=== PATIENT | female | born 1980 | race Caucasian/White ===

== ENCOUNTER 2017-03-07 17:17 | Emergency (ER) | payer OTHER ==
[~2017-03-07] VITALS: Ht 172.7 cm; Wt 151.6 kg
[~2017-03-07 17:17] MED LIST: GLC500 PO
[2017-03-07 17:23] VITALS: Ht 172.7 cm; Wt 151.6 kg
[2017-03-07] MEDS ORDERED: OMEP20CA9 PO (17:44)
[2017-03-07] MEDS ORDERED: ONDANSETRON INJ 2 MG/ML 2 ML VIAL IV STA (18:17)
[2017-03-07] MEDS ORDERED: KETOROLAC TROMETHAMINE 30 MG/ML VIAL IV STA (18:17)
[2017-03-07] MEDS ORDERED: SODIUM CHLORIDE 0.9% 1000ML 2,000 ML IV STA (18:17)
--- NOTE | 2017-03-07 19:20 | DIAGNOSTIC IMAGING REPORT ---
L-SPINE MIN 4 VIEWS ROUTINE CLINICAL HISTORY: Low back pain. COMPARISON: Lumbar spine radiographs September 02, 2014. FINDINGS: There is slight leftward curvature of the lumbar spine. Minimal anterolisthesis of L4 and L5 is unchanged. There is no fracture or suspicious lesion. Disc spaces are preserved. There is minimal endplate osteophytosis. Note is made of mild multilevel facet arthrosis. IMPRESSION: 1. No acute lumbar spine fracture or subluxation. 2. Minimal multilevel degenerative disc disease and facet arthrosis of the lumbar spine. Electronically signed by: Carlos Manuel Tran M.D. 03/07/2017 7:18 PM Dictated Date/Time: 03/07/2017 7:17 PM
[2017-03-07 19:50] LABS: BASO % 0.3 %; BASO ABS # 0.04 K/uL (0-0.2); COMPLETE YES; EOS % 1.6 %; HEMATOCRIT 38.9 % (37-47); IG% 0.3 %; LYMPH % 23.9 %; LYMPH ABS # 2.75 K/uL (1.2-3.4); MEAN CELL VOLUME 92.2 fL (80-100); MEAN CORPUSCULAR HEMOGLOBIN 31.3 pg (25-34); MEAN CORPUSCULAR HGB CONC 33.9 g/dl (32-36); MEAN PLATELET VOLUME 9.1 fL (7.4-10.4); MONO % 5.1 %; NEUT % 68.8 %; PLATELET COUNT 294 K/uL (130-400); RED BLOOD COUNT 4.22 M/uL (4.2-5.4); WHITE BLOOD COUNT 11.49 K/uL (4.8-10.8)
[2017-03-07 20:08] LABS: BUN/CREATININE RATIO 27.1 (10-20); CALCIUM 8.4 mg/dl (8.5-10.1); CREATININE 0.73 mg/dl (0.60-1.20); POTASSIUM 4.1 mmol/L (3.5-5.1)
[2017-03-07 20:16] LABS: URINE APPEARANCE CLOUDY (CLEAR); URINE BILIRUBIN NEG (NEG); URINE COLOR YELLOW; URINE EPITHELIAL CELL AUTO >30 /lpf (0-5); URINE NITRITE NEG (NEG); URINE PH 5.5 (4.5-7.5); UROBILINOGEN NEG (NEG)
[2017-03-07 20:18] LABS: PREG INTERNAL NEGATIVE QC NEG CLEAR BACKGROUND; PREG INTERNAL POSITIVE QC POS CONTROL LINE
[2017-03-07 20:19] LABS: MANUAL MICROSCOPIC REQUIRED? NO; REVIEW REQ? YES
--- NOTE | 2017-03-07 21:27 | DIAGNOSTIC IMAGING REPORT ---
CT OF THE ABDOMEN AND PELVIS WITHOUT CONTRAST, STONE PROTOCOL CLINICAL HISTORY: Left flank pain. COMPARISON STUDY: CT of the abdomen and pelvis May 10, 2009 and right upper quadrant ultrasound February 18, 2010. TECHNIQUE: Helical axial images of the abdomen and pelvis were obtained without IV or oral contrast according to renal stone protocol. FINDINGS: Lung bases are clear. No renal, ureteral or bladder calculi are present. There is no hydronephrosis or hydroureter. Evaluation of the remainder of the abdomen and pelvis is suboptimal on this unenhanced exam. Unenhanced images of the liver, spleen, adrenal glands and pancreas are normal. There is no biliary or pancreatic ductal dilatation. The gallbladder is not distended. Prominent para-aortic lymph node are unchanged since CT of May 10, 2009. There is no evidence for a bowel obstruction. The appendix is normal. A 3.1 cm water attenuation left adnexal lesion is noted. This likely reflects a cyst. Skeletal structures are unremarkable. There is no evidence for a bowel obstruction. IMPRESSION: 1. No urinary calculi or hydronephrosis. 2. No acute process within the abdomen or pelvis on unenhanced exam. 3. 3.1 cm water attenuation left adnexal lesion which likely reflects an ovarian cyst. Electronically signed by: Carlos Manuel Tran M.D. 03/07/2017 9:25 PM Dictated Date/Time: 03/07/2017 9:19 PM
[2017-03-07] MEDS ORDERED: HYDR-5688 PO (21:37)
--- NOTE | 2017-03-07 21:38 | EMERGENCY ROOM VISIT NOTE ---
History First contact with patient: 17:59 Chief Complaint: BACK PAIN Stated Complaint: LOWER BACK PAIN,ABD PAIN,NAUSEA, CHILLS History of Present Illness Patient is a 37-year-old white female who presents emergency department for evaluation of low back pain and urinary symptoms over the last 4 days. She has noted bilateral low back pain, left worse than right. It started about 4 days ago. It has progressively worsened. She states that it is worse with standing. She occasionally gets a sharp pain in her left flank that then radiates across her entire low back. She states she also notes some pain radiating into the tops of her thighs as well. Yesterday and today, she believes that she has only voided twice. She notes decreased urinary output yet notes urinary urgency. She denies hematuria or foul smelling urine. She has been nauseous, and used Zofran for nausea. She's had chills but has not documented a fever. She does have a family history of kidney stones, no personal history. She does have a history of low back issues for which she sees a chiropractor fairly regularly. She denies that this feels like her musculoskeletal pain. She denies any anterior abdominal pain. Bowel movements have been normal. No blood or melena. She denies any vaginal discharge. She does not get regular periods due to a history of an endometrial ablation. She denies any anterior chest pain or shortness of breath. No rib pain or pain with deep breathing or coughing. She denies any numbness, tingling or weakness or paresthesias into her legs. There is been no bowel or bladder incontinence. She rates her discomfort a 7/10 presently. Review of Systems Review of systems as per HPI. All other systems reviewed were negative. 10 systems reviewed. Past Medical/Surgical History Medical Problems: (1) Cervical strain (2) Cervical strain (3) Endometriosis Nos (4) Fall (5) Fall (6) Foot injury (7) GERD (gastroesophageal reflux disease) (8) Head injury (9) Headache (10) Hyperglycemia (11) Injury of left knee (12) Migraines (13) Morbid Obesity (14) Pain, dental (15) Polycystic Ovaries (16) Right knee pain Surgical Problems: (1) History of endometrial ablation (2) Previous section (3) S/P tonsillectomy Electronic medical records are reviewed and summarized as above/below. See Problem List. Family History Cancer Diabetes mellitus FHx: seizures Heart disease Hypertension Kidney disease Kidney stones Social History Smoking Status: Current Every Day Smoker Alcohol Use: none Marital Status: , in relationship Housing Status: lives with family, lives with significant other Occupation Status: employed Current/Historical Medications Scheduled Metformin HCl (Metformin HCl), 500 MG PO BID Omeprazole (Prilosec), 20 MG PO BID Scheduled PRN Hydrocodone/Acetaminophen 5MG/325MG (Odum 5MG/325MG), 1-2 TABLETS PO Q4 PRN for Pain Ibuprofen (Advil), 400-600 MG PO Q6H PRN for Pain Ondansetron (Ondansetron HCl), 8 MG PO Q8 PRN for Nausea Allergies Coded Allergies: No Known Allergies (Verified , 12/16/15) Physical Exam Vital Signs Date Time Temp Pulse Resp B/P Pulse Ox O2 Delivery O2 Flow Rate FiO2 03/07/17 21:47 36.6 71 20 118/75 99 03/07/17 21:24 71 20 118/75 99 Room Air 03/07/17 17:23 36.6 100 20 148/85 96 Room Air Physical Exam CONSTITUTIONAL: Patient is a morbidly obese 37-year-old white female who is awake and alert and laying on the gurney in no acute distress. EYES: Pupils equal, round, reactive to light and accommodation. EOMs intact without nystagmus. Sclera are anicteric. ENT: Tympanic membranes intact, with normal landmarks. External canals are clear. Oral and nasopharynx are clear. Mucous membranes are moist, no lesions , tongue and gums appear normal. CARDIOVASCULAR: Regular rate and rhythm, with normal S1 and S2, no murmur or gallop or rub is heard. No carotid bruits auscultated. No JVD. Peripheral pulses easy to palpable. RESPIRATORY: Breath sounds equal and clear to auscultation without wheezes, rales, or rhonchi heard. Full and equal chest expansion without accessory muscle use or retractions. GI: Bowel sounds are present. Abdomen is soft, nontender, nondistended. No organomegaly. No pulsatile masses. No guarding or rebound. MUSCULOSKELETAL: Full range of motion of extremities x 4 with good strength. No cyanosis, edema, joint tenderness or swelling. No deformity. Examination of the patient's spine does not note any swelling, erythema or signs of trauma. She has some reproducible tenderness over the spinous processes of the paraspinous muscles of the lumbar spine. No pain over the SI joints or the sciatic notch. Range of motion is full although she does have discomfort with position changes. Negative seated straight leg raise testing bilaterally. Lower extremity DTRs are equal and symmetric bilaterally with strength 5/5. INTEGUMENTARY: No lesions or rash, normal skin turgor. NEUROLOGICAL: Alert, oriented, and cooperative. Cranial nerves, sensation and strength grossly intact. Pupils round, equal, and react to light, EOMs are full. LYMPH: No lymphadenopathy. Medical Decision & Procedures ER Provider Diagnostic Interpretation: L-SPINE MIN 4 VIEWS ROUTINE CLINICAL HISTORY: Low back pain. COMPARISON: Lumbar spine radiographs September 02, 2014. FINDINGS: There is slight leftward curvature of the lumbar spine. Minimal anterolisthesis of L4 and L5 is unchanged. There is no fracture or suspicious lesion. Disc spaces are preserved. There is minimal endplate osteophytosis. Note is made of mild multilevel facet arthrosis. IMPRESSION: 1. No acute lumbar spine fracture or subluxation. 2. Minimal multilevel degenerative disc disease and facet arthrosis of the lumbar spine. CT OF THE ABDOMEN AND PELVIS WITHOUT CONTRAST, STONE PROTOCOL CLINICAL HISTORY: Left flank pain. COMPARISON STUDY: CT of the abdomen and pelvis May 10, 2009 and right upper quadrant ultrasound February 18, 2010. TECHNIQUE: Helical axial images of the abdomen and pelvis were obtained without IV or oral contrast according to renal stone protocol. FINDINGS: Lung bases are clear. No renal, ureteral or bladder calculi are present. There is no hydronephrosis or hydroureter. Evaluation of the remainder of the abdomen and pelvis is suboptimal on this unenhanced exam. Unenhanced images of the liver, spleen, adrenal glands and pancreas are normal. There is no biliary or pancreatic ductal dilatation. The gallbladder is not distended. Prominent para-aortic lymph node are unchanged since CT of May 10, 2009. There is no evidence for a bowel obstruction. The appendix is normal. A 3.1 cm water attenuation left adnexal lesion is noted. This likely reflects a cyst. Skeletal structures are unremarkable. There is no evidence for a bowel obstruction. IMPRESSION: 1. No urinary calculi or hydronephrosis. 2. No acute process within the abdomen or pelvis on unenhanced exam. 3. 3.1 cm water attenuation left adnexal lesion which likely reflects an ovarian cyst. Laboratory Results 03/07/17 19:43 Red Blood Count 4.22, Mean Corpuscular Volume 92.2, Mean Corpuscular Hemoglobin 31.3, Mean Corpuscular Hemoglobin Concent 33.9, Mean Platelet Volume 9.1, Neutrophils (%) (Auto) 68.8, Lymphocytes (%) (Auto) 23.9, Monocytes (%) (Auto) 5.1, Eosinophils (%) (Auto) 1.6, Basophils (%) (Auto) 0.3, Neutrophils # (Auto) 7.90, Lymphocytes # (Auto) 2.75, Monocytes # (Auto) 0.59, Eosinophils # (Auto) 0.18, Basophils # (Auto) 0.04 03/07/17 19:43 Test 03/07/17 19:43 03/07/17 20:00 White Blood Count 11.49 K/uL (4.8-10.8) Red Blood Count 4.22 M/uL (4.2-5.4) Hemoglobin 13.2 g/dL (12.0-16.0) Hematocrit 38.9 % (37-47) Mean Corpuscular Volume 92.2 fL (80-100) Mean Corpuscular Hemoglobin 31.3 pg (25-34) Mean Corpuscular Hemoglobin Concent 33.9 g/dl (32-36) Platelet Count 294 K/uL (130-400) Mean Platelet Volume 9.1 fL (7.4-10.4) Neutrophils (%) (Auto) 68.8 % Lymphocytes (%) (Auto) 23.9 % Monocytes (%) (Auto) 5.1 % Eosinophils (%) (Auto) 1.6 % Basophils (%) (Auto) 0.3 % Neutrophils # (Auto) 7.90 K/uL (1.4-6.5) Lymphocytes # (Auto) 2.75 K/uL (1.2-3.4) Monocytes # (Auto) 0.59 K/uL (0.11-0.59) Eosinophils # (Auto) 0.18 K/uL (0-0.5) Basophils # (Auto) 0.04 K/uL (0-0.2) RDW Standard Deviation 44.1 fL (36.4-46.3) RDW Coefficient of Variation 13.1 % (11.5-14.5) Immature Granulocyte % (Auto) 0.3 % Immature Granulocyte # (Auto) 0.03 K/uL (0.00-0.02) Anion Gap 4.0 mmol/L (3-11) Est Creatinine Clear Calc Drug Dose 161.7 ml/min Estimated GFR () 120.2 Estimated GFR (Non- 103.7 BUN/Creatinine Ratio 27.1 (10-20) Calcium Level 8.4 mg/dl (8.5-10.1) Human Chorionic Gonadotropin, Qual NEG (NEG) Urine Color YELLOW Urine Appearance CLOUDY (CLEAR) Urine pH 5.5 (4.5-7.5) Urine Specific Patriot 1.030 (1.000-1.030) Urine Protein NEG (NEG) Urine Glucose (UA) NEG (NEG) Urine Ketones NEG (NEG) Urine Occult Blood NEG (NEG) Urine Nitrite NEG (NEG) Urine Bilirubin NEG (NEG) Urine Urobilinogen NEG (NEG) Urine Leukocyte Esterase TRACE (NEG) Urine WBC (Auto) 10-30 /hpf (0-5) Urine RBC (Auto) 0-4 /hpf (0-4) Urine Hyaline Casts (Auto) /lpf (0-5) Urine Epithelial Cells (Auto) >30 /lpf (0-5) Urine Bacteria (Auto) 2+ (NEG) Urine Pathogenic Casts /lpf (0) Medications Administered Medications (Trade) Dose Ordered Sig/Missy Route Start Time Stop Time Status Last Admin Dose Admin Sodium Chloride (Nss 1000ml) 2,000 ml @ 999 mls/hr Q2H1M STAT IV 03/07/17 18:17 03/07/17 20:17 DC 03/07/17 19:25 999 MLS/HR Ketorolac Tromethamine (Toradol Inj) 30 mg NOW STAT IV 03/07/17 18:17 03/07/17 18:19 DC 03/07/17 19:24 30 MG Ondansetron HCl (Zofran Inj) 4 mg NOW STAT IV 03/07/17 18:17 03/07/17 18:19 DC 03/07/17 19:24 4 MG Acetaminophen/ Hydrocodone Bitart (Odum 5/325mg Home Pack) 1 homepack UD ONCE PO 03/07/17 21:45 03/07/17 21:46 DC 03/07/17 21:42 1 [facility] ED Course The patient was seen and evaluated as above. Her old records were reviewed. IV access was difficult, but was ultimately obtained. She was medicated with Toradol 30 mg and Zofran 4 mg IV. She was hydrated with normal saline solution. Laboratory studies including urinalysis, serum hCG, CBC and BMP were obtained. Lumbar spine x-rays were performed, which noted diffuse degenerative changes through the lumbar spine.laboratory studies demonstrated a minimally elevated white count at 11,400. Electrolytes are within normal limits. Serum hCG is negative. Urinalysis noted trace leuk esterase and 10-30 wbc's, with 2+ bacteria and greater than 30 epithelial cells. There are no other indicators for infection, however given her symptoms urine culture was ordered and is pending. Given her flank pain, I did elect to proceed with a CT scan. There was no evidence for urinary calculi or hydronephrosis. There was a 3 cm left adnexal region which likely reflects an ovarian cyst. No other acute process was noted. All laboratory diagnostic imaging studies were reviewed with the patient. She does have a moderate-sized left ovarian cyst, which could be attributing to some of her symptoms. She does not have overwhelmingly convincing evidence for UTI or pyelonephritis. Has no evidence for ureterolithiasis. I suspect she may also have some element of musculoskeletal low back pain as well. She does not have any physical exam findings to indicate acute cord compression or cauda equina syndrome. Patient was given a prescription for hydrocodone. She was advised to follow-up with her primary care provider and her bicycle repair technician for further care and management. She was discharged home in good condition with family driving. She rated her discomfort a 4/10 at discharge. Medical Decision See ED course. Impression Primary Impression: Left ovarian cyst Additional Impressions: Left flank pain Low back pain Departure Information Prescriptions Hydrocodone/Acetaminophen 5MG/325MG (Odum 5MG/325MG) Tab 1-2 TABLETS PO Q4 Y for Pain, #15 TAB For Initial Treatment Prov: Lilliana Caputo PA 03/07/17 Referrals Jessi Ramey M.D. (MEDICAL) (PCP) Patient Instructions My [facility] Additional Instructions Hydrocodone/Acetaminophen (Odum) 5/325 mg: Take 1-2 pills every four hours for breakthrough pain. Avoid alcohol, operating machinery or dangerous equipment, working on ladders or roofs, DRIVING, or situations where being under the influence may be dangerous. It is recommended to use an [id number] stool softener such as Colace, 100mg twice daily while taking this medication to avoid constipation. Ibuprofen(Motrin, Advil) may be used for fever or pain. Use 600mg every six hours as needed. Take with food. Avoid using more than 2400mg in a 24 hour period. Do not use 2400mg per day for more than three consecutive days without physician direction. Prolonged inappropriate use can lead to stomach upset or ulcers. This medication can be taken if you need to drive, work, or perform activities which may be dangerous when taking narcotic pain medication. (AND/OR) Acetaminophen(Tylenol) may be used for fever or pain. Use 1000mg every six hours as needed. Avoid using more than 3000mg in a 24 hour period. This medication can be taken if you need to drive, work, or perform activities which may be dangerous when taking narcotic pain medication. Rest and avoid heavy lifting until your symptoms resolve and then gradually return to full activity. A good rule of thumb is if it hurts your back to perform a certain activity, then it should be avoided until you are healthy again. A heating pad, warm compresses, or a hot shower may help with tight muscles and can be done several times a day as needed. Continue current medications. Return to the ER immediately for any numbness, tingling, severe pain, loss of control of your bowels or bladder, inability to walk, or as needed. Follow up with your primary care physician within 3-5 days for a recheck of your current condition. Follow-up with her bicycle repair technician for further care and evaluation of your ovarian cyst. Problem Qualifiers
[2017-03-07] MEDS ORDERED: NORCO 5/325MG HOME PACK PO ONE (21:45)
[2017-03-07 21:47] VITALS: BP 118/75; PULSE 71; TEMP 36.6; O2SAT 99
[2017-07-13] MEDS ORDERED: FLUO40CA8 PO (14:38)
[2017-10-13] MEDS ORDERED: DICY20TA10 PO (14:03)
[2017-10-13] MEDS ORDERED: CALC500C3 PO (14:38)
== END 2017-03-07 21:48 | disposition home or self-care (01) ==
LOC: C.EDB 17:18
DX: N83.201 Unspecified ovarian cyst, right side (principal); R19.8 Other specified symptoms and signs involving the digestive system and abdomen; R73.9 Hyperglycemia, unspecified; K21.9 Gastro-esophageal reflux disease without esophagitis; E66.01 Morbid (severe) obesity due to excess calories; F17.200 Nicotine dependence, unspecified, uncomplicated; Z83.3 Family history of diabetes mellitus; Z84.1 Family history of disorders of kidney and ureter; Z82.49 Family history of ischemic heart disease and other diseases of the circulatory system

== ENCOUNTER 2017-03-21 13:37 | Emergency (ER) | payer OTHER ==
[~2017-03-21] VITALS: Ht 172.7 cm; Wt 136.8 kg
[~2017-03-21 13:37] MED LIST changes: +HYDR-5688 PO; +OMEP20CA9 PO
[2017-03-21 13:50] VITALS: TEMP 36.6; Ht 172.7 cm; Wt 136.8 kg
[2017-03-21] MEDS ORDERED: SODIUM CHLORIDE 0.9% 1000ML 1,000 ML IV STA (14:07)
[2017-03-21] MEDS ORDERED: FAMOTIDINE 20MG/102 ML D5W IV STA (14:17)
[2017-03-21] MEDS ORDERED: SODIUM CHLORIDE 0.9% 1000ML 2,000 ML IV STA (14:17)
[2017-03-21] MEDS ORDERED: ONDANSETRON 8 MG/54 ML D5W IV ONE (14:30)
[2017-03-21] MEDS ORDERED: OPTIRAY 320 IV PRN (14:45)
[2017-03-21 14:52] LABS: BASO % 0.3 %; BASO ABS # 0.03 K/uL (0-0.2); COMPLETE YES; EOS % 1.8 %; HEMATOCRIT 42.2 % (37-47); IG% 0.2 %; LYMPH % 32.6 %; LYMPH ABS # 2.93 K/uL (1.2-3.4); MEAN CELL VOLUME 94.6 fL (80-100); MEAN CORPUSCULAR HEMOGLOBIN 32.3 pg (25-34); MEAN CORPUSCULAR HGB CONC 34.1 g/dl (32-36); MEAN PLATELET VOLUME 9.3 fL (7.4-10.4); MONO % 5.8 %; NEUT % 59.3 %; PLATELET COUNT 329 K/uL (130-400); RED BLOOD COUNT 4.46 M/uL (4.2-5.4); WHITE BLOOD COUNT 8.99 K/uL (4.8-10.8)
[2017-03-21 15:15] LABS: BLOOD UREA NITROGEN 15 mg/dl (7-18); BUN/CREATININE RATIO 19.1 (10-20); CALCIUM 9.2 mg/dl (8.5-10.1); CARBON DIOXIDE 30 mmol/L (21-32); CHLORIDE 106 mmol/L (98-107); CREATININE 0.77 mg/dl (0.60-1.20); GLUCOSE 88 mg/dl (70-99); MAGNESIUM 1.8 mg/dl (1.8-2.4); POTASSIUM 3.9 mmol/L (3.5-5.1); SODIUM 142 mmol/L (136-145)
[2017-03-21 15:27] LABS: ALKALINE PHOSPHATASE 69 U/L (45-117); ALT/SGPT 41 U/L (12-78); AST/SGOT 19 U/L (15-37)
--- NOTE | 2017-03-21 16:02 | DIAGNOSTIC IMAGING REPORT ---
ABDOMINAL ULTRASOUND, RIGHT UPPER QUADRANT HISTORY: upper mid pain, radiating to back. COMPARISON: None. FINDINGS: Pancreas: The pancreatic tail is obscured by overlying bowel gas. The remaining portions of the pancreas are within normal limits. Liver: The liver is echogenic consistent with fatty change. Gallbladder: Gallbladder is contracted resulting in suboptimal evaluation. No gallbladder wall thickening. No gallstones. CBD: 3 mm. Right kidney: No hydronephrosis. IMPRESSION: 1. Contracted gallbladder. No definite gallbladder wall thickening. No gallstones. 2. Hepatic steatosis. Electronically signed by: Haim Rubio M.D. 03/21/2017 4:00 PM Dictated Date/Time: 03/21/2017 3:59 PM
--- NOTE | 2017-03-21 17:31 | DIAGNOSTIC IMAGING REPORT ---
ABDOMEN AND PELVIS CT WITH IV AND ORAL CONTRAST CT DOSE: 1868.75 mGy.cm HISTORY: mid upper abd pain. TECHNIQUE: Multiaxial CT images of the abdomen and pelvis were performed following the use of intravenous and oral contrast. COMPARISON STUDY: Abdomen and pelvis CT 03/07/2017. FINDINGS: The lung bases are clear. The gallbladder is contracted. The liver, spleen, adrenal glands, and pancreas are unremarkable. Normal kidneys. No hydronephrosis. Subcentimeter retroperitoneal lymph nodes remain stable. The bladder is unremarkable. Small bilateral renal hypodense lesions. The largest on the right measures 2.2 cm. These likely represent cysts. The left ovarian hypodense lesions have decreased in size. Trace pelvic free fluid which is likely physiologic. No bowel wall thickening or obstruction. IMPRESSION: 1. No bowel wall thickening or obstruction. 2. No hydronephrosis. 3. The gallbladder is contracted. There is no pericholecystic inflammatory change. 4. Trace pelvic free fluid which is likely physiologic. Electronically signed by: Haim Rubio M.D. 03/21/2017 5:30 PM Dictated Date/Time: 03/21/2017 5:23 PM
[2017-03-21] MEDS ORDERED: DICY20TA35 PO (18:48)
[2017-03-21 18:55] VITALS: BP 142/69; PULSE 70; O2SAT 99
--- NOTE | 2017-03-21 23:55 | EMERGENCY ROOM VISIT NOTE ---
History Report prepared by Homer: Denia Downs Under the Supervision of: Dr. Silverio Scott M.D. First contact with patient: 14:06 Chief Complaint: ABDOMINAL PAIN Stated Complaint: VOMITING BLOOD, SEVERE STOMACH AND BACK PAINS Nursing Triage Summary: PT PRESENTS VERBALIZES SHE VOMITIED BLOOD AT 0800. C/O BILATERAL ABDOMINAL AND BILATERAL BACK PAIN 10/10. LAST BM TWO DAYS AGO. PT SEEN AT PCP FOR THIS TWO DAYS AGO AND RECEIVED ENEMA, SUPPOSITORY, AND MIRILAX BUT ABDOMINAL PAIN PERSISTS. History of Present Illness The patient is a 37 year old female who presents to the Emergency Room with complaints of worsening upper abdominal pain for the past week and a half. The patient was seen in the ED 2 weeks ago and diagnosed with a left ovarian cyst. Her CT scan was otherwise negative. She states that since that time she has been experiencing diffuse abdominal pain that she describes as "twisting" and "cramping." She also feels that her abdomen is bloated. The patient rates her pain as a 10/10 in severity and states that it radiates into her lower back. She has had intermittent nausea, and this morning at 0800 she had an episode of hematemesis. Her last bowel movement was 2 days ago. She was evaluated at her PCP's office for these symptoms. She had an enema, suppository, and MiraLAX, in the office and she had multiple watery bowel movements. The patient states that she initially had relief, but once she got home her symptoms returned and they have persisted. She called her PCP's office 2 days ago and they recommended that she continue the MiraLAX. Pt denies LOC, headache, fevers, chills, diaphoresis, visual changes, neck pain, chest pain, breathing difficulties, melena, hematochezia, urinary symptoms, numbness, weakness, lymphadenopathy, rash, or other complaints. Source of History: patient Onset: 1.5 weeks ago Position: abdomen (upper) Symptom Intensity: 10/10 Quality: cramping, other (twisting) Timing: worsening Modifying Factors (Relieving): other (enema, suppository, MiraLAX) Associated Symptoms: + back pain, + nausea, + vomiting (with hematemesis) Review of Systems See HPI for pertinent positives and negatives. A total of ten systems were reviewed and were otherwise negative. Past Medical & Surgical Medical Problems: (1) Cervical strain (2) Cervical strain (3) Endometriosis Nos (4) Fall (5) Fall (6) Foot injury (7) GERD (gastroesophageal reflux disease) (8) Head injury (9) Headache (10) Hyperglycemia (11) Injury of left knee (12) Migraines (13) Morbid Obesity (14) Pain, dental (15) Polycystic Ovaries (16) Right knee pain Surgical Problems: (1) History of endometrial ablation (2) Previous section (3) S/P tonsillectomy Family History Cancer Diabetes mellitus FHx: seizures Heart disease Hypertension Kidney disease Kidney stones Social History Smoking Status: Current Every Day Smoker Alcohol Use: none Marital Status: , in relationship Housing Status: lives with family, lives with significant other Occupation Status: employed Current/Historical Medications Scheduled Metformin HCl (Metformin HCl), 500 MG PO BID Omeprazole (Prilosec), 20 MG PO BID Scheduled PRN Dicyclomine Hcl (Dicyclomine Hcl), 1 TAB PO QID PRN for Pain Dicyclomine Hcl (Bentyl), 20 MG PO QID PRN for Pain Hydrocodone/Acetaminophen 5MG/325MG ([place]man 5MG/325MG), 1-2 TABLETS PO Q4 PRN for Pain Ibuprofen (Advil), 400-600 MG PO Q6H PRN for Pain Ondansetron (Ondansetron HCl), 8 MG PO Q8 PRN for Nausea Allergies Coded Allergies: No Known Allergies (Verified , 03/21/17) Physical Exam Vital Signs Date Time Temp Pulse Resp B/P Pulse Ox O2 Delivery O2 Flow Rate FiO2 03/21/17 18:55 70 20 142/69 99 03/21/17 18:25 70 20 142/69 99 Room Air 03/21/17 17:30 68 24 143/78 98 Room Air 03/21/17 15:40 72 22 151/79 100 Room Air 03/21/17 15:08 72 03/21/17 13:50 36.6 79 18 130/66 99 Room Air Physical Exam GENERAL: Awake, alert, well-appearing, in no distress HENT: Normocephalic, atraumatic. Oropharynx unremarkable. EYES: Normal conjunctiva. Sclera non-icteric. NECK: Supple. No nuchal rigidity. FROM. No JVD. RESPIRATORY: Clear to auscultation. CARDIAC: Regular rate, normal rhythm. Extremities warm and well perfused. Pulses equal. ABDOMEN: Soft, non-distended. Bilateral upper quadrant tenderness and significant epigastric tenderness to palpation. No rebound or guarding. No masses. RECTAL: Deferred. MUSCULOSKELETAL: Chest examination reveals no tenderness. The back is symmetrical on inspection without obvious abnormality. There is right CVA tenderness to palpation. No joint edema. LOWER EXTREMITIES: Calves are equal size bilaterally and non-tender. No edema. No discoloration. NEURO: Normal sensorium. No sensory or motor deficits noted. SKIN: No rash or jaundice noted. Medical Decision & Procedures ER Provider Diagnostic Interpretation: Radiology results as stated below per my review and radiologist interpretation: ABDOMINAL ULTRASOUND, RIGHT UPPER QUADRANT HISTORY: upper mid pain, radiating to back. COMPARISON: None. FINDINGS: Pancreas: The pancreatic tail is obscured by overlying bowel gas. The remaining portions of the pancreas are within normal limits. Liver: The liver is echogenic consistent with fatty change. Gallbladder: Gallbladder is contracted resulting in suboptimal evaluation. No gallbladder wall thickening. No gallstones. CBD: 3 mm. Right kidney: No hydronephrosis. IMPRESSION: 1. Contracted gallbladder. No definite gallbladder wall thickening. No gallstones. 2. Hepatic steatosis. Electronically signed by: Haim Rubio M.D. 03/21/2017 4:00 PM Dictated Date/Time: 03/21/2017 3:59 PM ABDOMEN AND PELVIS CT WITH IV AND ORAL CONTRAST CT DOSE: 1868.75 mGy.cm HISTORY: mid upper abd pain. TECHNIQUE: Multiaxial CT images of the abdomen and pelvis were performed following the use of intravenous and oral contrast. COMPARISON STUDY: Abdomen and pelvis CT 03/07/2017. FINDINGS: The lung bases are clear. The gallbladder is contracted. The liver, spleen, adrenal glands, and pancreas are unremarkable. Normal kidneys. No hydronephrosis. Subcentimeter retroperitoneal lymph nodes remain stable. The bladder is unremarkable. Small bilateral renal hypodense lesions. The largest on the right measures 2.2 cm. These likely represent cysts. The left ovarian hypodense lesions have decreased in size. Trace pelvic free fluid which is likely physiologic. No bowel wall thickening or obstruction. IMPRESSION: 1. No bowel wall thickening or obstruction. 2. No hydronephrosis. 3. The gallbladder is contracted. There is no pericholecystic inflammatory change. 4. Trace pelvic free fluid which is likely physiologic. Electronically signed by: Haim Rubio M.D. 03/21/2017 5:30 PM Dictated Date/Time: 03/21/2017 5:23 PM Laboratory Results 03/21/17 14:40 Red Blood Count 4.46, Mean Corpuscular Volume 94.6, Mean Corpuscular Hemoglobin 32.3, Mean Corpuscular Hemoglobin Concent 34.1, Mean Platelet Volume 9.3, Neutrophils (%) (Auto) 59.3, Lymphocytes (%) (Auto) 32.6, Monocytes (%) (Auto) 5.8, Eosinophils (%) (Auto) 1.8, Basophils (%) (Auto) 0.3, Neutrophils # (Auto) 5.33, Lymphocytes # (Auto) 2.93, Monocytes # (Auto) 0.52, Eosinophils # (Auto) 0.16, Basophils # (Auto) 0.03 03/21/17 14:40 Test 03/21/17 14:07 03/21/17 14:40 Urine Test NEG (NEG) White Blood Count 8.99 K/uL (4.8-10.8) Red Blood Count 4.46 M/uL (4.2-5.4) Hemoglobin 14.4 g/dL (12.0-16.0) Hematocrit 42.2 % (37-47) Mean Corpuscular Volume 94.6 fL (80-100) Mean Corpuscular Hemoglobin 32.3 pg (25-34) Mean Corpuscular Hemoglobin Concent 34.1 g/dl (32-36) Platelet Count 329 K/uL (130-400) Mean Platelet Volume 9.3 fL (7.4-10.4) Neutrophils (%) (Auto) 59.3 % Lymphocytes (%) (Auto) 32.6 % Monocytes (%) (Auto) 5.8 % Eosinophils (%) (Auto) 1.8 % Basophils (%) (Auto) 0.3 % Neutrophils # (Auto) 5.33 K/uL (1.4-6.5) Lymphocytes # (Auto) 2.93 K/uL (1.2-3.4) Monocytes # (Auto) 0.52 K/uL (0.11-0.59) Eosinophils # (Auto) 0.16 K/uL (0-0.5) Basophils # (Auto) 0.03 K/uL (0-0.2) RDW Standard Deviation 44.8 fL (36.4-46.3) RDW Coefficient of Variation 12.9 % (11.5-14.5) Immature Granulocyte % (Auto) 0.2 % Immature Granulocyte # (Auto) 0.02 K/uL (0.00-0.02) Anion Gap 6.0 mmol/L (3-11) Est Creatinine Clear Calc Drug Dose 144.1 ml/min Estimated GFR () 112.7 Estimated GFR (Non- 97.3 BUN/Creatinine Ratio 19.1 (10-20) Calcium Level 9.2 mg/dl (8.5-10.1) Magnesium Level 1.8 mg/dl (1.8-2.4) Total Bilirubin 0.4 mg/dl (0.2-1) Direct Bilirubin < 0.1 mg/dl (0-0.2) Aspartate Amino Transf (AST/SGOT) 19 U/L (15-37) Alanine Aminotransferase (ALT/SGPT) 41 U/L (12-78) Alkaline Phosphatase 69 U/L (45-117) Total Protein 7.4 gm/dl (6.4-8.2) Albumin 3.6 gm/dl (3.4-5.0) Lipase 141 U/L (73-393) Laboratory results reviewed by me Medications Administered Medications (Trade) Dose Ordered Sig/Missy Route Start Time Stop Time Status Last Admin Dose Admin Sodium Chloride (Nss 1000ml) 1,000 ml @ 999 mls/hr Q1H1M STAT IV 03/21/17 14:07 03/21/17 15:07 DC 03/21/17 17:23 999 MLS/HR Famotidine (Pepcid 20mg/100 ml) 20 mg ONE STAT IV 03/21/17 14:17 03/21/17 14:20 DC 03/21/17 14:59 20 MG Ondansetron HCl 8 mg 8 mg NOW ONCE IV 03/21/17 14:30 03/21/17 14:31 DC 03/21/17 14:59 8 MG Sodium Chloride (Nss 1000ml) 2,000 ml @ 999 mls/hr Q2H1M STAT IV 03/21/17 14:17 03/21/17 16:17 DC 03/21/17 14:59 999 MLS/HR ED Course 1406: The patient was evaluated in room C2B. A complete history and physical exam was performed. 1407: NSS 1000 ml @ 999 mls/hr IV 1417: NSS 2000 ml @ 999 mls/hr IV, Famotidine 20 mg IV 1430: Zofran 8 mg IV 1812: I reassessed the patient at this time. She is feeling better and resting comfortably. I discussed the results and treatment plan with the patient. I answered all pertaining questions that she had. She expressed understanding and verbalized agreement. The patient will be discharged home. Medical Decision Triage Nursing notes reviewed. The patient's presentation and history were concerning for abdominal pain. Etiologies such as PUD, biliary pathology, pancreatitis, appendicitis, diverticulitis, obstruction, inflammatory bowel disease, renal colic, mesenteric ischemia, aortic pathology, infections, genitourinary, UTI, perforated viscus, , ovarian pathology, as well as others were entertained. The patient was evaluated. She was hydrated. She was given Zofran. The patient declined analgesia. She was sent for ultrasound imaging of the right upper quadrant as well as CT imaging was deferred prep. Blood work was obtained as well as urinalysis. The patient had an unremarkable CBC, chemistry panel, LFTs, lipase, and urinalysis. negative. The patient underwent ultrasound imaging of the right upper quadrant which was negative. The patient had CT scan of the abdomen and pelvis with IV and oral contrast and this was negative as well. On follow-up the patient was feeling relatively well. She did not want to have any heavy prescription medication and I counseled her against this as well because of her history of IBS and constipation. I did offer the patient dicyclomine. The patient was instructed to take Zantac twice daily on top of her PPI for one week. The patient clarified about the vomiting blood and states it was just a few streaks in her vomitus and not profound hematemesis. The patient is doing exceptionally well at this time. Conservative management is most appropriate and she was in agreement. Exact etiology of her symptoms is not obvious so I did ask for her to follow up with her primary physician and discuss additional evaluation, possible GI referral, or even consideration for gallbladder function study. By the evaluation outlined above other emergent etiologies such as those listed in the differential, as well as others, were deemed relatively unlikely. The patient was informed about the findings as listed above. All questions were answered and she was pleased with the treatment. Return instructions were outlined and the patient was discharged in stable condition. The patient was referred to her PCP for follow-up Thursday for a recheck of the current condition. The chart was completed utilizing [employer] Speech voice recognition software. Grammatical errors, random word insertions, pronoun errors, and incomplete sentences are an occasional consequence of this system due to software limitations, ambient noise, and hardware issues. Any formal questions or concerns about the content, text, or information contained within the body of this dictation should be directly addressed to the physician for clarification. [place] Drug Monitoring Program Search Results: patient reviewed within database, no issues identified Impression Primary Impression: Upper abdominal pain Scribe Attestation The scribe's documentation has been prepared under my direction and personally reviewed by me in its entirety. I confirm that the note above accurately reflects all work, treatment, procedures, and medical decision making performed by me. Departure Information Dispostion Home / Self-Care Prescriptions Dicyclomine Hcl (BENTYL) 20 Mg Tab 20 MG PO QID Y for Pain, #20 TAB Prov: Silverio Scott MD 03/21/17 Referrals Jessi Ramey M.D. (MEDICAL) (PCP) Forms Call Back Authorization, HOME CARE DOCUMENTATION FORM, IMPORTANT VISIT INFORMATION Patient Instructions My [facility] Additional Instructions ABDOMINAL PAIN INSTRUCTIONS: Zantac 150 mg twice daily for 7 days. This is available [id number]. Bentyl(dicyclomine) 20 mg: Take one tablet 4 times daily as needed for abdominal pain. If 20 mg does not seem to be enough you may increase to 40 mg 4 times daily after one week. If you do not have any results with this medication do not continue past 2 weeks from the start date. Discontinue this medication if you develop any rash, itching, increased abdominal pain, heartburn , increased nausea, constipation, or as needed. Acetaminophen(Tylenol) may be used for fever or pain. Use 1000mg every six hours as needed. Avoid using more than 4000mg in a 24 hour period. Rest and drink plenty of fluids as tolerated. Slow sips of water or sports drinks are recommended instead of large amounts all at once. Continue current medications. Once your stomach is settled start with a clear liquid diet (jello, soup broth, etc.) and then advance as tolerated. You should avoid full, heavy meals for about 24 hrs from the time your symptoms resolved. Avoid sodas and dairy products as discussed. Return to the ER immediately for worsening or persistent abdominal pain, vomiting, fevers, chest pains, difficulty breathing, black or bloody stools, worsening of your condition, or as needed. Follow up with your primary physician in 2-3 days for a recheck of your current condition.
[2017-07-13] MEDS ORDERED: FLUO40CA8 PO (14:38)
[2017-10-13] MEDS ORDERED: DICY20TA10 PO (14:03)
[2017-10-13] MEDS ORDERED: CALC500C3 PO (14:38)
== END 2017-03-21 18:57 | disposition home or self-care (01) ==
LOC: C.EDB 13:39 → C.EDC 18:57
DX: R10.10 Upper abdominal pain, unspecified (principal); K21.9 Gastro-esophageal reflux disease without esophagitis; E28.2 Polycystic ovarian syndrome; Z87.828 Personal history of other (healed) physical injury and trauma; Z98.890 Other specified postprocedural states; Z91.81 History of falling; Z79.4 Long term (current) use of insulin; Z79.899 Other long term (current) drug therapy; Z80.9 Family history of malignant neoplasm, unspecified; Z83.3 Family history of diabetes mellitus; Z82.0 Family history of epilepsy and other diseases of the nervous system; Z82.49 Family history of ischemic heart disease and other diseases of the circulatory system; Z84.1 Family history of disorders of kidney and ureter

== ENCOUNTER → 2017-07-14 | Day surgery (SDC) | payer OTHER ==
[2017-07-13 14:39] VITALS: Ht 172.7 cm; Wt 147.7 kg
[~2017-07-14] VITALS: Ht 172.7 cm; Wt 147.7 kg
[~2017-07-14] MED LIST changes: +CALC500C3 PO; +DICY20TA10 PO; +FLUO40CA8 PO; -GLC500 PO; -HYDR-5688 PO; +IBUP-1050 PO; +LIDOCAINE HCL 2% 2 ML VIAL (20MG/ML) ONE; +MIDAZOLAM HCL 1 MG/ML 2ML VIAL ONE; -OMEP20CA9 PO; +ONDA-63 PO; +PHENYLEPHRINE 100MCG/ML 5ML SYR ONE; +PROPOFOL IV EMULSION 10 MG/ML 20 ML VIAL IV ONE; +SODIUM CHLORIDE 0.9% 500ML 500 ML IV ONE
--- NOTE | 2017-07-14 09:46 | Endo History and Physical ---
History & Physical Date of Service: Jul 14, 2017. Chief Complaint: abdominal,family history of colon cancer Referring Physician: Dr. Howie Ramey History of Present Illness Abdominal pain and diarrhea Past Medical History Anxiety, Reflux, Depression Past Surgical History Hx Cardiac Surgery: No Hx Internal Defibrillator: No Hx Pacemaker: No Hx Abdominal Surgery: Yes (UTERINE ABLATION, X2, D&C,tubal ligation) Hx of Implantable Prosthesis: No Hx Post-Op Nausea and Vomiting: No Hx Cancer Surgery: No Hx Thoracic Surgery: No Hx Orthopedic: No Hx Urinary Tract Surgery: No Family History Colon CA, Esophogeal CA Social History Smoking Status: Current Every Day Smoker Hx Substance Use: No Hx Alcohol Use: No Allergies Coded Allergies: No Known Allergies (Verified , 07/13/17) Current Medications Reported Home Medications Medications Dose Route/Sig Max Daily Dose Days Date Category Tums (Calcium Carbonate) 500 Mg Chew 1 Tab PO UD PRN 07/13/17 Reported Prozac (Fluoxetine HCl) 40 Mg Cap 40 Mg PO QAM 07/13/17 Reported Dicyclomine Hcl 20 Mg Tab 1 Tab PO QID PRN 03/21/17 Reported Ondansetron HCl (Ondansetron) 8 Mg Tab 8 Mg PO Q8 PRN 03/07/17 Reported Advil (Ibuprofen) 200 Mg Tab 400-600 Mg PO Q6H PRN 05/20/16 Reported Vital Signs Weight (Kilograms): 147.73 Height (Feet): 5 Height (Inches): 8 Date Time Temp Pulse Resp B/P (MAP) Pulse Ox O2 Delivery O2 Flow Rate FiO2 07/14/17 09:25 36.6 75 20 155/70 (98) 98 Room Air Physical Exam General Appearance: WD/WN, no apparent distress, + obese Respiratory/Chest: Auscultation: breath sounds normal, no wheezing Cardiovascular: Heart Auscultation: RRR, no murmurs Assessment and Plan Cleared for procedures
--- NOTE | 2017-07-14 10:38 | Discharge Instructions ---
Endoscopy Patient Instructions Date / Procedure(s) Performed Jul 14, 2017. Colonoscopy, EGD Allergy Information Coded Allergies: No Known Allergies (Verified , 07/13/17) Discharge Date / Findings Jul 14, 2017. Esophagitis, colon polyp. Biopsies pending Medication Instructions Restart Stopped Medication(s): Start pantoprazole (Protonix) one tablet before breakfast daily. Resume other medications today. Provider Instructions Activity Restrictions - No exercising or heavy lifting for 24 hours. - Do not drink alcohol the day of the procedure. - Do not drive a car or operate machinery until the day after the procedure. - Do not make any important decisions or sign important papers in 24 hours after the procedure. Following Day: - Return to full activity which may include returning to work/school. Diet Start your diet with liquids and light foods (jello, soup, juice, toast). Then eat your usual diet if not nauseated. Treatment For Common After Affects For mild abdominal pain, bloating, or excessive gas: - Rest - Eat lightly - Lie on right side Follow-Up Information Follow-up with Dr. Howie Ramey as scheduled Anesthesia Information What You Should Know You have had a procedure that required some medicine to reduce anxiety and discomfort. This treatment is called moderate sedation. After receiving the treatment, you may be sleepy, but you will be able to breathe on your own. The effects of the treatment may last for several hours. Follow these instructions along with Activity/Diet recommendations noted above: * Do NOT do anything where dizziness or clumsiness would be dangerous. * Rest quietly at home today, then you can be up and about tomorrow. * Have a responsible person stay with you the rest of today. * You may have had an I.V. today. If so, you may take the dressing off later today. Recommendations Call your doctor if: * Trouble breathing * Continuous vomiting for more than 24 hours * Temperature above 101 degrees * Severe abdominal pain or bloating * Pain not relieved by pain medicine ordered * There is increased drainage or redness from any incision * A large amount of rectal bleeding greater than 2-3 tablespoons. (If you had a polyp/s removed or have hemorrhoids, a small amount of blood - from the rectum is to be expected.) * You have any unanswered questions or concerns. IN THE EVENT OF A SERIOUS EMERGENCY, GO TO THE NEAREST EMERGENCY ROOM Your discharge instructions were prepared by provider Mahamed Simpson. Patient Instructions Signature Page Neto Ramires Patient (or Guardian) Signature/Date: I have read and understand the instructions given to me by my caregivers. Caregiver/RN/Doctor Signature/Date: The above-named patient and/or guardian has received patient instructions on this date. + Original Patient Signature Page (only) stays with chart. Please make copy for patient.
--- NOTE | 2017-07-14 10:48 | Anesthesiology Progress Note ---
Anesthesia Post Op Note Date & Time Jul 14, 2017 at 10:48 Vital Signs Pain Intensity: 3 Vital Signs Past 12 Hours Date Time Temp Pulse Resp B/P (MAP) Pulse Ox O2 Delivery O2 Flow Rate FiO2 07/14/17 10:35 75 20 101/66 (78) 100 Room Air 07/14/17 09:25 36.6 75 20 155/70 (98) 98 Room Air Notes Mental Status: alert / awake / arousable, participated in evaluation Pt Amnestic to Procedure: Yes Nausea / Vomiting: adequately controlled Pain: adequately controlled Airway Patency, RR, SpO2: stable & adequate BP & HR: stable & adequate Hydration State: stable & adequate Anesthetic Complications: no major complications apparent
[2017-07-14 11:00] VITALS: BP 123/80; PULSE 65; O2SAT 96
--- NOTE | 2017-07-15 00:14 | GI REPORT ---
Procedure Date: 07/14/2017 10:05 AM Procedure: Colonoscopy Indications: Epigastric abdominal pain, Chronic diarrhea Medicines: Propofol per Anesthesia Complications: No immediate complications. Estimated blood loss: None. Estimated Blood Loss: Estimated blood loss: none. Procedure: Pre-Anesthesia Assessment: - Prior to the procedure, a History and Physical was performed, and patient medications, allergies and sensitivities were reviewed. The patient's tolerance of previous anesthesia was reviewed. - ASA Grade Assessment: III - A patient with severe systemic disease. After I obtained informed consent, the scope was passed under direct vision. Throughout the procedure, the patient's blood pressure, pulse, and oxygen saturations were monitored continuously. The scope was introduced through the anus and advanced to the terminal ileum, with identification of the appendiceal orifice and IC valve. The colonoscopy was performed without difficulty. The patient tolerated the procedure well. The quality of the bowel preparation was fair. The bowel preparation used was split dose MIralax. Findings: A 4 mm polyp was found in the descending colon. The polyp was flat. The polyp was removed with a cold snare. Resection and retrieval were complete. Normal mucosa was found in the entire colon. Biopsies for histology were taken with a cold forceps from the entire colon for evaluation of microscopic colitis. Fluid aspiration was performed through the scope suction channel. The amount of fluid collected was 10 mL. Sample(s) were sent for microbiology. Verification of patient identification for the specimens was done by the physician and nurse using the patient's name, date and medical record number. Impression: - One 4 mm polyp in the descending colon, removed with a cold snare. Resected and retrieved. - Normal mucosa in the entire examined colon. Biopsied. Fluid aspiration performed. - The colon was otherwise normal to the terminal ileum with retroflexed views of the colon and terminal ileum. Recommendation: - Await pathology results. - Discharge patient to home (with escort). Mahamed Simpson M.D. Mahamed Simpson MD 07/14/2017 11:21:16 AM This report has been signed electronically. Note Initiated On: 07/14/2017 10:05 AM I attest to the content of the Intraoperative Record and orders documented therein, exceptions below
--- NOTE | 2017-07-15 00:14 | GI REPORT ---
Procedure Date: 07/14/2017 9:31 AM Procedure: Upper GI endoscopy Indications: Epigastric abdominal pain, Diarrhea Medicines: Propofol per Anesthesia Complications: No immediate complications. Estimated blood loss: None. Estimated Blood Loss: Estimated blood loss: none. Procedure: Pre-Anesthesia Assessment: - Prior to the procedure, a History and Physical was performed, and patient medications, allergies and sensitivities were reviewed. The patient's tolerance of previous anesthesia was reviewed. - ASA Grade Assessment: III - A patient with severe systemic disease. After obtaining informed consent, the endoscope was passed under direct vision. Throughout the procedure, the patient's blood pressure, pulse, and oxygen saturations were monitored continuously. The Scope was introduced through the mouth, and advanced to the third part of the duodenum. Small bowel enteroscopy was deemed necessary. The upper GI endoscopy was accomplished with ease. The patient tolerated the procedure well. Findings: The upper third of the esophagus, middle third of the esophagus and lower third of the esophagus were normal. LA Grade B (one or more mucosal breaks greater than 5 mm, not extending between the tops of two mucosal folds) esophagitis with no bleeding was found at the gastroesophageal junction at 39 cm from the incisors. Biopsies were taken with a cold forceps for histology. A small hiatus hernia was present. The entire examined stomach was normal. Biopsies were taken with a cold forceps for Helicobacter pylori testing. The examined duodenum was normal. Biopsies for histology were taken with a cold forceps for evaluation of celiac disease. Impression: - Normal upper third of esophagus, middle third of esophagus and lower third of esophagus. - LA Grade B reflux esophagitis. Rule out Cunha's esophagus. Biopsied. - Small hiatus hernia. - Normal stomach. Biopsied. - Normal examined duodenum. Biopsied. Recommendation: - Await pathology results. - Follow an antireflux regimen. - Use Protonix (pantoprazole) 40 mg PO daily. Mahamed Simpson M.D. Mahamed Simpson MD 07/14/2017 10:28:06 AM This report has been signed electronically. Note Initiated On: 07/14/2017 9:31 AM I attest to the content of the Intraoperative Record and orders documented therein, exceptions below
[2017-07-17 18:22] LABS: CRYPTOSPORIDIUM AG TC 37213 NOT DETECTED (NOT DETECTED); O&P GIARDIA AG NOT DETECTED (NOT DETECTED)
== END | disposition home or self-care (01) ==
LOC: C.GI 08:54
PROVIDERS: ATTEND Internal Medicine Gastroenterology
DX: D12.4 Benign neoplasm of descending colon (principal); K52.9 Noninfective gastroenteritis and colitis, unspecified; K29.50 Unspecified chronic gastritis without bleeding; K21.0 Gastro-esophageal reflux disease with esophagitis; K44.9 Diaphragmatic hernia without obstruction or gangrene; F32.9 Major depressive disorder, single episode, unspecified; F41.9 Anxiety disorder, unspecified; F17.200 Nicotine dependence, unspecified, uncomplicated; Z79.899 Other long term (current) drug therapy; Z80.0 Family history of malignant neoplasm of digestive organs

== ENCOUNTER 2017-10-13 17:00 | Emergency (ER) | payer OTHER ==
[~2017-10-13] VITALS: Ht 177.8 cm; Wt 141.0 kg
[~2017-10-13 17:00] MED LIST changes: -IBUP-1050 PO; -LIDOCAINE HCL 2% 2 ML VIAL (20MG/ML) ONE; -MIDAZOLAM HCL 1 MG/ML 2ML VIAL ONE; -ONDA-63 PO; -PHENYLEPHRINE 100MCG/ML 5ML SYR ONE; -PROPOFOL IV EMULSION 10 MG/ML 20 ML VIAL IV ONE; -SODIUM CHLORIDE 0.9% 500ML 500 ML IV ONE
[2017-10-13 17:04] VITALS: TEMP 36.5; Ht 177.8 cm; Wt 141.0 kg
[2017-10-13] MEDS ORDERED: MoRPHine SULFATE 10 MG/ML CARP/VIAL IM STA (17:24)
[2017-10-13] MEDS ORDERED: KETOROLAC TROMETHAMINE 60 MG/2 ML VIAL IM STA (17:24)
[2017-10-13] MEDS ORDERED: MoRPHine SULFATE 4 MG/ML 1 ML CARP\\VIAL ONE (17:29)
[2017-10-13] MEDS ORDERED: ONDANSETRON 4MG OD TAB PO ONE (17:30)
[2017-10-13] MEDS ORDERED: ONDA-63 PO (17:44)
--- NOTE | 2017-10-13 18:13 | DIAGNOSTIC IMAGING REPORT ---
L VENOUS DOPP LOWER EXT UNILAT CLINICAL HISTORY: LLE pain - R/O DVT pain. Edema. TECHNIQUE: Venous Doppler COMPARISON STUDY: None FINDINGS: Normal venous Doppler left leg IMPRESSION: Normal venous Doppler left leg The above report was generated using voice recognition software. It may contain grammatical, syntax or spelling errors. Electronically signed by: Seth Almanza M.D. 10/13/2017 6:12 PM Dictated Date/Time: 10/13/2017 6:10 PM
[2017-10-13] MEDS ORDERED: IBUP-1050 PO (18:25)
[2017-10-13] MEDS ORDERED: PANT40TA2 PO (18:40)
--- NOTE | 2017-10-13 19:29 | EMERGENCY ROOM VISIT NOTE ---
History First contact with patient: 17:07 Chief Complaint: LEG PAIN,LEG INJURY Stated Complaint: PAIN FROM LEFT HIP DOWN TO FOOT, TINGLING History of Present Illness The patient is a 37 year old female who presents to the Emergency Room with complaints of lower back pain radiating along the lateral aspect of the thigh and into the medial aspect of the left knee. The patient reports that she was seen yesterday at [facility] for a cortisone injection in the left knee. When she woke up this morning with significant pain, she called their office and was referred here or her family doctor for evaluation. The patient is wondering if the reaction could be secondary to the cortisone injection. The patient also relates a prior history of right-sided sciatica, but has never had left-sided involvement. She does occasionally see a chiropractor. She also reports that she was off work for 9 months for other issues, and just returned to work this past month. She has been having problems with plantar fasciitis of both feet. She does admit that she has been limping on the left leg because of her left knee. The patient denies any bladder/bowel incontinence , saddle anesthesias, left or extremity weakness or foot drop. The patient denies history of DVT. She does have a mother and grandmother with a history of factor V Leiden. The patient rates her discomfort an 8 out of 10. Review of Systems 10 system review was performed and was negative except for pertinent positives and negatives as indicated in history of present illness Past Medical/Surgical History Medical Problems: (1) Cervical strain (2) Cervical strain (3) Endometriosis Nos (4) Fall (5) Fall (6) Foot injury (7) GERD (gastroesophageal reflux disease) (8) Head injury (9) Headache (10) Hyperglycemia (11) Injury of left knee (12) Migraines (13) Morbid Obesity (14) Pain, dental (15) Polycystic Ovaries (16) Right knee pain Surgical Problems: (1) History of endometrial ablation (2) Previous section (3) S/P tonsillectomy Family History Cancer Diabetes mellitus FHx: seizures Heart disease Hypertension Kidney disease Kidney stones Social History Smoking Status: Current Every Day Smoker Alcohol Use: none Marital Status: , in relationship Housing Status: lives with family, lives with significant other Occupation Status: employed Current/Historical Medications Scheduled Pantoprazole (Pantoprazole Sodium), 40 MG PO DAILY Scheduled PRN Calcium Carbonate (Tums), 2 TAB PO UD PRN for Indigestion Dicyclomine Hcl (Dicyclomine Hcl), 1 TAB PO QID PRN for ABDOMINAL PAIN Ibuprofen (Advil), 400-600 MG PO Q6H PRN for Pain Ondansetron (Ondansetron HCl), 8 MG PO Q8 PRN for Nausea Physical Exam Vital Signs Date Time Temp Pulse Resp B/P (MAP) Pulse Ox O2 Delivery O2 Flow Rate FiO2 10/13/17 18:30 70 20 115/76 99 Room Air 10/13/17 17:04 36.5 76 20 139/74 99 Room Air Physical Exam CONSTITUTIONAL: Morbidly obese female, alert and oriented X 3 with positive affect. The patient appears in mild discomfort from pain. HEENT: Normocephalic, atraumatic. Pupils equal, round and reactive. NECK: Full active range of motion without discomfort. RESPIRATORY: Clear to auscultation bilaterally with no wheezing, crackles, rhonchi or stridor. CARDIOVASCULAR: Regular rate and rhythm with no murmurs, rubs or gallops. GASTROINTESTINAL: Bowel sounds present in all quadrants. Soft and nontender to palpation. MUSCULOSKELETAL: Examination shows minimal tenderness to palpation through the left lower lumbar paraspinous muscle and SI joints. Negative logroll. Positive straight leg raise. No focal tenderness to palpation over the greater trochanteric region, anterior groin, hamstrings or knee region. Pedal pulses are intact. The left leg does appear to be more swollen than the right. There is no skin changes or erythema/ecchymosis noted. INTEGUMENTARY: No rash or other significant dermatologic conditions noted. NEUROLOGIC: No focal neurologic deficits noted. Left foot and toes are sensory intact with deep tendon reflexes 2+ and symmetric bilaterally. Medical Decision & Procedures ER Provider Diagnostic Interpretation: Venous ultrasound of the left lower extremity is negative for deep vein thrombosis. Radiologist report is as follows: L VENOUS DOPP LOWER EXT UNILAT CLINICAL HISTORY: LLE pain - R/O DVT pain. Edema. TECHNIQUE: Venous Doppler COMPARISON STUDY: None FINDINGS: Normal venous Doppler left leg IMPRESSION: Normal venous Doppler left leg Medications Administered Medications (Trade) Dose Ordered Sig/Missy Route Start Time Stop Time Status Last Admin Dose Admin Morphine Sulfate (MoRPHine SULFATE INJ) 8 mg NOW STAT IM 10/13/17 17:24 10/13/17 17:25 DC 10/13/17 17:24 8 MG Ketorolac Tromethamine (Toradol Inj) 60 mg NOW STAT IM 10/13/17 17:24 10/13/17 17:25 DC 10/13/17 17:38 60 MG Ondansetron HCl (Zofran Odt) 4 mg ONE ONCE PO 10/13/17 17:30 10/13/17 17:31 DC 10/13/17 17:37 4 MG ED Course Patient history and physical exam were performed. Nurse's notes were reviewed. Vital signs were reviewed and were normal. The patient was administered IM morphine and Toradol, along with Zofran ODT for pain. This reduced her pain to a 3 out of 10. Venous ultrasound of the left lower extremity is negative for deep vein thrombosis. The patient was advised that her symptoms are likely secondary to lumbar radiculitis. I explained that her symptoms are not likely secondary to a cortisone shot; however, her most recent limping and antalgic gait has likely flared her sciatica. The patient was encouraged to avoid heavy lifting or sitting for long periods of time. To avoid any further exacerbation of her knee pain, she was also encouraged to avoid kneeling, squatting or other activities to irritate the knee. A knee immobilizer was dispensed. The patient was encouraged to intermittently apply ice to the knee and back. Ibuprofen and Tylenol in alternating fashion if needed for additional pain relief. The patient refused any additional prescription analgesics, was happy with plan of care, and discharged with her . The patient was encouraged to follow-up with her PCP or orthopedics if symptoms are not improving within the next week. She was instructed to return to the emergency department for any progressively worsening symptoms. Medical Decision See previous section [place] Drug Monitoring Program Search Results: patient reviewed within database, no issues identified Medication Reconcilliation Current Medication List: was personally reviewed by me Blood Pressure Screening Patient's blood pressure: Normal blood pressure Impression Primary Impression: Left-sided low back pain with sciatica Departure Information Dispostion Home / Self-Care Forms HOME CARE DOCUMENTATION FORM, IMPORTANT VISIT INFORMATION Patient Instructions My [facility], ED Sciatica Additional Instructions Avoid heavy lifting, climbing, kneeling, squatting and sitting for long periods of time. Ibuprofen 800 mg and/or Tylenol 1000 mg every 8 hours. You may also alternate these medications for more effective pain relief: Ibuprofen --4 HRS--> Tylenol --4 HRS--> ibuprofen --4 HRS--> Tylenol .... Continue follow-up with your PCP or orthopedics with any persistent symptoms. FOR WORK: The patient was evaluated in the emergency department today with an acute sciatica. Limit activities as described above until symptoms improve. Problem Qualifiers Primary Impression: Left-sided low back pain with sciatica Chronicity: acute Sciatica laterality: sciatica of left side Qualified Codes: M54.42 - Lumbago with sciatica, left side
[2017-10-13 19:33] VITALS: BP 122/76; PULSE 67; O2SAT 97
== END 2017-10-13 19:34 | disposition home or self-care (01) ==
LOC: C.EDB 17:03 → C.EDA 19:34
DX: M54.42 Lumbago with sciatica, left side (principal); M25.562 Pain in left knee; M72.2 Plantar fascial fibromatosis; F17.200 Nicotine dependence, unspecified, uncomplicated; N80.9 Endometriosis, unspecified; K21.9 Gastro-esophageal reflux disease without esophagitis; E66.01 Morbid (severe) obesity due to excess calories; E28.2 Polycystic ovarian syndrome; Z83.2 Family history of diseases of the blood and blood-forming organs and certain disorders involving the immune mechanism; Z83.3 Family history of diabetes mellitus; Z82.49 Family history of ischemic heart disease and other diseases of the circulatory system; Z82.0 Family history of epilepsy and other diseases of the nervous system; Z84.1 Family history of disorders of kidney and ureter

== ENCOUNTER 2018-06-24 12:34 | Emergency (ER) | payer OTHER ==
[~2018-06-24 12:34] MED LIST changes: -FLUO40CA8 PO; +IBUP-1050 PO; +ONDA-63 PO; +PANT40TA2 PO
[2018-06-24 12:43] VITALS: TEMP 36.7; Ht 172.7 cm
[2018-06-24 14:31] LABS: BASO % 0.2 %; BASO ABS # 0.02 K/uL (0-0.2); EOS % 2.6 %; EOS ABS # 0.27 K/uL (0-0.5); HEMATOCRIT 42.8 % (37-47); IG# 0.02 K/uL (0.00-0.02); LYMPH % 23.7 %; LYMPH ABS # 2.41 K/uL (1.2-3.4); MEAN CELL VOLUME 95.1 fL (80-100); MEAN CORPUSCULAR HEMOGLOBIN 31.1 pg (25-34); MEAN CORPUSCULAR HGB CONC 32.7 g/dl (32-36); MEAN PLATELET VOLUME 9.4 fL (7.4-10.4); MONO % 8.9 %; MONO ABS # 0.91 K/uL (0.11-0.59); NEUT % 64.4 %; NEUT ABS # 6.56 K/uL (1.4-6.5); PLATELET COUNT 294 K/uL (130-400); RED CELL DISTRIBUTION WIDTH CV 13.3 % (11.5-14.5); RED CELL DISTRIBUTION WIDTH SD 46.3 fL (36.4-46.3); WHITE BLOOD COUNT 10.19 K/uL (4.8-10.8)
--- NOTE | 2018-06-24 14:44 | DIAGNOSTIC IMAGING REPORT ---
R FOOT MIN 3 VIEWS ROUTINE HISTORY: 38 years-old Female right heel pain acute right heel pain COMPARISON: None available TECHNIQUE: 3 views of the right foot FINDINGS: Soft tissue prominence about the leg, ankle and foot. No acute fracture or dislocation. Corticated bone fragments about the anterior distal tibia suggests healed fracture deformity. Moderate enthesophyte about the Achilles insertion site calcaneus. IMPRESSION: 1. No acute fracture or dislocation. 2. Moderate enthesophyte about the Achilles insertion site calcaneus. The above report was generated using voice recognition software. It may contain grammatical, syntax or spelling errors. Electronically signed by: Brian Rodríguez M.D. 06/24/2018 2:43 PM Dictated Date/Time: 06/24/2018 2:41 PM
[2018-06-24 14:51] LABS: ALBUMIN 3.4 gm/dl (3.4-5.0); ALKALINE PHOSPHATASE 71 U/L (45-117); ALT/SGPT 30 U/L (12-78); AST/SGOT 14 U/L (15-37); BLOOD UREA NITROGEN 17 mg/dl (7-18); CARBON DIOXIDE 31 mmol/L (21-32); CREATININE 0.72 mg/dl (0.60-1.20); GLUCOSE 84 mg/dl (70-99); POTASSIUM 4.1 mmol/L (3.5-5.1); SODIUM 138 mmol/L (136-145); TOTAL PROTEIN 7.1 gm/dl (6.4-8.2)
--- NOTE | 2018-06-24 14:56 | EMERGENCY ROOM VISIT NOTE ---
History Report prepared by Homer: Maliha Duong Under the Supervision of: Dr. Mahamed Martinez D.O. First contact with patient: 13:46 Chief Complaint: FOOT PAIN Stated Complaint: R FOOT/ANKLE PAIN History of Present Illness The patient is a 38 year old female who presents to the Emergency Room with complaints of intermittent R foot pain beginning 5 days ago. She notes the pain is worst in the back of her foot ,and radiates up to her R knee. The patient reports the pain worsens when walking, and describes it as a "Sherwin horse that won't go away." She states the foot is both tender and hot. The patient notes her pain is relieved when resting or elevating her foot. She states Ibuprofen did not relieve her pain. The patient notes she has broken her R foot twice in the past, over 18 years ago. She reports she is also experiencing an intermittent cough. The patient mentions she was seen in the ED 2 weeks ago for L foot swelling and was treated with Keflex, after which her swelling resolved. She notes severe arthritis in both feet, and states she received a cortisone shot in her L foot last week, and was walking with most of weight on her R foot. The patient notes she was referred to the ED by her PCP, Dr. Ruggiero, who is unsure of the cause of her pain. She states she was put on Lasix 2 days ago, and has been drinking a lot of fluids, but is barely urinating. She notes she no longer has her menstrual period due to an endometriosis ablation. Source of History: patient Onset: 5 days ago Position: foot (right) Modifying Factors (Worsening): other (walking) Modifying Factors (Relieving): rest, elevation, other (not relieved by ibuprofen) Associated Symptoms: + cough (intermittent), + urinary symptoms (urinating less than usual) Review of Systems See HPI for pertinent positives & negatives. A total of 10 systems reviewed and were otherwise negative. Past Medical & Surgical Medical Problems: (1) Cervical strain (2) Cervical strain (3) Endometriosis Nos (4) Fall (5) Fall (6) Foot injury (7) GERD (gastroesophageal reflux disease) (8) Head injury (9) Headache (10) Hyperglycemia (11) Injury of left knee (12) Migraines (13) Morbid Obesity (14) Pain, dental (15) Polycystic Ovaries (16) Right knee pain Surgical Problems: (1) History of endometrial ablation (2) Previous section (3) S/P tonsillectomy Family History Cancer Diabetes mellitus FHx: seizures Heart disease Hypertension Kidney disease Kidney stones Social History Smoking Status: Current Every Day Smoker Alcohol Use: none Marital Status: , in relationship Housing Status: lives with family, lives with significant other Occupation Status: employed Current/Historical Medications Scheduled Pantoprazole (Pantoprazole Sodium), 40 MG PO DAILY Scheduled PRN Calcium Carbonate (Tums), 2 TAB PO UD PRN for Indigestion Dicyclomine Hcl (Dicyclomine Hcl), 1 TAB PO QID PRN for ABDOMINAL PAIN Ibuprofen (Advil), 400-600 MG PO Q6H PRN for Pain Ondansetron (Ondansetron HCl), 8 MG PO Q8 PRN for Nausea Allergies Coded Allergies: No Known Allergies (Verified , 07/13/17) Physical Exam Vital Signs Date Time Temp Pulse Resp B/P (MAP) Pulse Ox O2 Delivery O2 Flow Rate FiO2 06/24/18 15:17 77 20 132/59 97 Room Air 06/24/18 12:43 36.7 88 18 138/96 97 Room Air Physical Exam GENERAL: Patient is awake, alert, and in no acute distress. Patient is resting comfortably and showing no signs of anxiety EYES: The conjunctivae are clear. The pupils are round and reactive. EARS, NOSE, MOUTH AND THROAT: The nose is without any evidence of any deformity. Mucous membranes are moist. Tongue is midline NECK: The neck is nontender and supple. RESPIRATORY: Normal respiratory effort is noted. There is no evidence of wheezing rhonchi or rales to auscultation. CARDIOVASCULAR: Regular rate and rhythm noted. There no murmurs rubs or gallops normal S1 normal S2 GASTROINTESTINAL: The abdomen is soft. Bowel sounds are present in all quadrants. Abdomen is nontender. BACK: There is diffuse midline tenderness, which patient states is baseline, ROM appears intact. MUSCULOSKELETAL/EXTREMITIES: There is no evidence of gross deformity. Full range of motion is noted in the hips and shoulders. Tenderness with compression of R heel, no erythema or warmth. SKIN: There is no obvious evidence of any rash. There are no petechiae, pallor or cyanosis noted. No significant pitting edema, pulses were symmetric in both feet, capillary refill symmetric symmetric in both feet. NEUROLOGIC: Patient is awake alert and oriented x3. Medical Decision & Procedures ER Provider Diagnostic Interpretation: Radiology results as stated below per my review and radiologist interpretation: R VENOUS DOPP LOWER EXT UNILAT HISTORY: 38 years-old Female right LE pain acute pain and swelling of the right leg COMPARISON: None available TECHNIQUE: Multiple real-time sonographic images of the right lower extremity deep venous structures were obtained assessing grayscale appearance, color and spectral flow FINDINGS: Normal flow, compressibility, phasicity and augmentation of the right lower extremity deep venous structures. IMPRESSION: No sonographic evidence of deep venous thrombosis. The above report was generated using voice recognition software. It may contain grammatical, syntax or spelling errors. Electronically signed by: Brian Rodríguez M.D. 06/24/2018 3:03 PM Dictated Date/Time: 06/24/2018 3:03 PM R FOOT MIN 3 VIEWS ROUTINE HISTORY: 38 years-old Female right heel pain acute right heel pain COMPARISON: None available TECHNIQUE: 3 views of the right foot FINDINGS: Soft tissue prominence about the leg, ankle and foot. No acute fracture or dislocation. Corticated bone fragments about the anterior distal tibia suggests healed fracture deformity. Moderate enthesophyte about the Achilles insertion site calcaneus. IMPRESSION: 1. No acute fracture or dislocation. 2. Moderate enthesophyte about the Achilles insertion site calcaneus. The above report was generated using voice recognition software. It may contain grammatical, syntax or spelling errors. Electronically signed by: Brian Rodríguez M.D. 06/24/2018 2:43 PM Dictated Date/Time: 06/24/2018 2:41 PM Laboratory Results 06/24/18 14:15 Red Blood Count 4.50, Mean Corpuscular Volume 95.1, Mean Corpuscular Hemoglobin 31.1, Mean Corpuscular Hemoglobin Concent 32.7, Mean Platelet Volume 9.4, Neutrophils (%) (Auto) 64.4, Lymphocytes (%) (Auto) 23.7, Monocytes (%) (Auto) 8.9, Eosinophils (%) (Auto) 2.6, Basophils (%) (Auto) 0.2, Neutrophils # (Auto) 6.56, Lymphocytes # (Auto) 2.41, Monocytes # (Auto) 0.91, Eosinophils # (Auto) 0.27, Basophils # (Auto) 0.02 06/24/18 14:15 Test 06/24/18 14:15 White Blood Count 10.19 K/uL (4.8-10.8) Red Blood Count 4.50 M/uL (4.2-5.4) Hemoglobin 14.0 g/dL (12.0-16.0) Hematocrit 42.8 % (37-47) Mean Corpuscular Volume 95.1 fL (80-100) Mean Corpuscular Hemoglobin 31.1 pg (25-34) Mean Corpuscular Hemoglobin Concent 32.7 g/dl (32-36) Platelet Count 294 K/uL (130-400) Mean Platelet Volume 9.4 fL (7.4-10.4) Neutrophils (%) (Auto) 64.4 % Lymphocytes (%) (Auto) 23.7 % Monocytes (%) (Auto) 8.9 % Eosinophils (%) (Auto) 2.6 % Basophils (%) (Auto) 0.2 % Neutrophils # (Auto) 6.56 K/uL (1.4-6.5) Lymphocytes # (Auto) 2.41 K/uL (1.2-3.4) Monocytes # (Auto) 0.91 K/uL (0.11-0.59) Eosinophils # (Auto) 0.27 K/uL (0-0.5) Basophils # (Auto) 0.02 K/uL (0-0.2) RDW Standard Deviation 46.3 fL (36.4-46.3) RDW Coefficient of Variation 13.3 % (11.5-14.5) Immature Granulocyte % (Auto) 0.2 % Immature Granulocyte # (Auto) 0.02 K/uL (0.00-0.02) Erythrocyte Sedimentation Rate 39 mm/hr (0-21) Anion Gap 3.0 mmol/L (3-11) Estimated GFR () 121.4 Estimated GFR (Non- 104.8 BUN/Creatinine Ratio 23.6 (10-20) Calcium Level 9.0 mg/dl (8.5-10.1) Magnesium Level 2.0 mg/dl (1.8-2.4) Total Bilirubin 0.4 mg/dl (0.2-1) Direct Bilirubin 0.1 mg/dl (0-0.2) Aspartate Amino Transf (AST/SGOT) 14 U/L (15-37) Alanine Aminotransferase (ALT/SGPT) 30 U/L (12-78) Alkaline Phosphatase 71 U/L (45-117) C-Reactive Protein 1.35 mg/dl (0-0.29) Total Protein 7.1 gm/dl (6.4-8.2) Albumin 3.4 gm/dl (3.4-5.0) Laboratory results per my review. ED Course 1401: The patient was evaluated in room B6. A complete history and physical examination were performed. 1548: Upon reevaluation, the patient is resting. I discussed the results and treatment plan with her. She verbalized agreement of the treatment plan. The patient was discharged home. Medical Decision Etiologies such as DVT, musculoskeletal, infection, joint effusion, trauma, lymphedema, idiopathic, CHF, as well as others were entertained. Nursing notes reviewed. The patient's recent ER visit was reviewed. The patient is a 38-year-old female who presented to the emergency department with pain and swelling over her right foot and ankle. The patient's history and physical exam appear to be consistent with musculoskeletal pain but she was sent to the emergency department for the possibility of venous thromboembolic disease. The patient's ultrasound was negative. X-rays did not reveal any acute abnormality but she did have some calcification over the insertion of the Achilles tendon. On reevaluation this area was very tender. I would wonder if the patient has had Achilles tendinitis and may have a partial tear. I discussed this possibility with her. She seen a information security risk analyst recently. She was encouraged to follow-up with the information security risk analyst as soon as possible. She was given walker training. She was also placed in Tray wrap. She was encouraged to continue Motrin and Tylenol for pain and return to the emergency department immediately if symptoms change worsen or the need arises. Medication Reconcilliation Current Medication List: was personally reviewed by me Blood Pressure Screening Patient's blood pressure: Normal blood pressure Blood pressure disposition: Did not require urgent referral Impression Primary Impression: Right foot pain Additional Impression: Right Achilles tendinitis Scribe Attestation The scribe's documentation has been prepared under my direction and personally reviewed by me in its entirety. I confirm that the note above accurately reflects all work, treatment, procedures, and medical decision making performed by me. Departure Information Dispostion Home / Self-Care Referrals Gina Huston (PCP) Forms HOME CARE DOCUMENTATION FORM, IMPORTANT VISIT INFORMATION Patient Instructions My [facility] Additional Instructions Call your family doctor to schedule a follow-up appointment. Try to use the walker and the Tray wrap as much as possible. Try to keep nonweightbearing as much as possible with your right leg. Continue using Motrin and Tylenol as directed for pain. Schedule a follow-up appointment with your information security risk analyst or even your family doctor for further evaluation. He may require further studies such as an MRI of the foot and ankle to further evaluate the cause your pain. Problem Qualifiers
--- NOTE | 2018-06-24 15:05 | DIAGNOSTIC IMAGING REPORT ---
R VENOUS DOPP LOWER EXT UNILAT HISTORY: 38 years-old Female right LE pain acute pain and swelling of the right leg COMPARISON: None available TECHNIQUE: Multiple real-time sonographic images of the right lower extremity deep venous structures were obtained assessing grayscale appearance, color and spectral flow FINDINGS: Normal flow, compressibility, phasicity and augmentation of the right lower extremity deep venous structures. IMPRESSION: No sonographic evidence of deep venous thrombosis. The above report was generated using voice recognition software. It may contain grammatical, syntax or spelling errors. Electronically signed by: Brian Rodríguez M.D. 06/24/2018 3:03 PM Dictated Date/Time: 06/24/2018 3:03 PM
[2018-06-24 15:17] VITALS: BP 132/59; PULSE 77; O2SAT 97
== END 2018-06-24 16:04 | disposition home or self-care (01) ==
LOC: C.EDB 12:36
DX: M79.671 Pain in right foot (principal); M76.61 Achilles tendinitis, right leg; M19.071 Primary osteoarthritis, right ankle and foot; M19.072 Primary osteoarthritis, left ankle and foot; F17.200 Nicotine dependence, unspecified, uncomplicated

== ENCOUNTER 2021-06-07 06:55 | Observation (INO) ==
--- NOTE | 2021-05-15 11:45 | PAT Medication Instructions ---
Medication Instructions Date of Service May 15, 2021 Home Medications Medication Instructions Recorded Nico Peterson #1 ea 05/03/21 pantoprazole [Protonix] 40 mg PO QAM fluoxetine 20 mg PO QAM ondansetron HCl [Zofran] 4 mg PO Q12 PRN acetaminophen 1,000 mg PO Q6H PRN azithromycin 250 mg PO DAILY Take morning of surgery With a small sip of water, OTHERWISE NOTHING TO EAT OR DRINK AFTER MIDNIGHT: pantoprazole [Protonix] 40 mg PO QAM fluoxetine 20 mg PO QAM ondansetron HCl [Zofran] 4 mg PO Q12 PRN (if needed) acetaminophen 1,000 mg PO Q6H PRN (okay to take up to 4 hours prior to surgery if needed) azithromycin 250 mg PO DAILY Take evening before surgery ondansetron HCl [Zofran] 4 mg PO Q12 PRN (if needed) acetaminophen 1,000 mg PO Q6H PRN (if needed) Other Notes If you have any questions please call us at [phone] or [phone] or [phone] or [phone]
--- NOTE | 2021-05-17 08:30 | Anesthesiology Consultation ---
Date of Service May 17, 2021 Assessment & Plan (1) Encounter for pre-operative examination: - COVID screening: Per assessment on 05/17: Travel screen negative, no known COVID-19 positive contacts. Patient with current cough x 5 days (felt to be bronchitis by PCP- given abx, proair and cough suppressant. PCP states sore throat has resolved and cough improving) > advised to followup with PCP and PAT if symptoms did not resolve in near future- she voiced understanding. Patient vaccinated. Preop COVID testing 06/05. Awaiting results. - Neurology office visit (02/02/20): "Repeat imaging studies are described above with the cervical MRI showing only the Chiari malformation and on my review of the MRI of the brain I am not impressed with the significance of any of the high T2 intensity signals other than the fact that they probably reflect prior migraine activity and the enhancing lesion is very difficult for me to confirm.. All I plan to do now is offer magnesium oxide riboflavin for potential migraines, have advised her to keep track of the headaches in their nature and if she begins to get more occipital headaches more vertigo etc then we may have to consider a referral for Chiari decompression but frankly I would be very loathe to do anything right now and I am not that impressed with either the severity of the Chiari or the white matter lesions we see in the brain.. I have left things open ended would be happy to take a look at her again should things change clinically at that point of headaches would increase or she have other symptoms other worrisome I probably simply repeat the brain MRI to see if indeed there are some new high T2 intensity signals and signals that show more impressive enhancement than 1 I looked at today and was not very impressed with" > per subsequent PAT visit 05/17/21, patient reports headaches have not worsened and are unchanged from last neurology visit. Awaiting neurology perioperative recommendations (specifically if able to use spinal anesthesia from their perspective). - Difficult intubation: Left knee scope with medial meniscus repair (07/12/20): Glidescope#3, ETT 7.5 at [facility] (DVLx1 with MAC#3 by ESPERANZA with no view, DVL x1 with Thompson #[address] Tomlinson with no view. LMA#5 placed without problems to ventilate. Pt NOT an easy mask. FOB tried for view of cords since glidescope not available. FOB not able to pass through cords. LMA replaced to ventilate. Glidescope#3 used with view of cords. ETT successfully placed. B/L tonsillar h ypertrophy noted. - Anesthesia note (07/12/20): "Patient had large neck and tongue on preoperative exam, but otherwise unremarkable preoperative airway asessment. Initially a rapid sequence intubation was attempted with a MAC3 blade by the CAN TOP SETTER. This yielded a grade IV view of the pharynx (no visible supraglottic structures) and very large 4+ tonsils were noted. A second attempt was then performed by the attending anesthesiologist with a thompson 3 blade which yielded the same view. At this point, the patient was difficult to ventilate with an oral airway and 2hand mask and so a #5 LMA was placed, which allowed for ventilation and oxygenation, and additional anesthetic doses while alternative methods were prepared. Next, a glidescope was used, which had some difficulty in placement to the back of the throat due to the very large tongue and tonsils. This yielded a view only of the tip of the epiglottis, and endotracheal tube placement was not attempted. Finally, the glidescope was used in combination with fiberoptic bronchoscopy, which was successful in intubating the patient. Of note, the difficult airway was discussed with the patient in recovery and she claims to have had tonsillectomy as a child. As clearly there was very large tonsil-like tissue on both sides of the pharynx. The patient and her mother were recommende d to follow up on this with her PCP to decide it further diagnostic workup may be necessary for presumptive sleep apnea." > patient seen by sleep medicine 04/2021 who are arranging sleep study testing (not done yet per [facility]). Per sleep medicine, suspected ZAHIRA. - Check test AM DOS - Per patient, she states she was told by surgeon's office that she would be staying at least over night post-operatively. Chart Review Chart Review: Patient seen in Pre Admission Testing Teaching & Discussion Pre-Anesthesia Teaching/Discussion Notes: Instructed NPO after midnight before surgery,except medications with 15 cc of water. Medication instructions provided according to the PAT guidelines. History Surgery Operation Date: 06/07/21 10:20 Proposed Procedures p Left Total Knee Arthroplasty - Surya Lopez, Height/Weight Height: 5 ft 8 in Weight: 154.4 kg Allergies Allergy/AdvReac Type Severity Reaction Status Date / Time No Known Allergies Allergy Verified 05/15/21 10:55 Medications Home Medications Medication Instructions Recorded Confirmed Last Taken pantoprazole [Protonix] 40 mg PO QAM 07/03/20 05/15/21 06/28/20 fluoxetine 20 mg PO QAM 09/05/20 05/15/21 Unknown ondansetron HCl [Zofran] 4 mg PO Q12 PRN 09/05/20 05/15/21 Unknown acetaminophen 1,000 mg PO Q6H PRN 10/03/20 05/15/21 Unknown Wheeled Walker #1 ea 05/03/21 Unknown azithromycin 250 mg PO DAILY 05/15/21 05/15/21 Unknown Past Medical History Medical History (Updated 05/17/21 @ 09:23 by Beba Paul) Acid reflux uncontrolled Anxiety Carpal tunnel syndrome on left (s/p right surgical repair) Chiari malformation Follows with neuro- no current issues per last neuro note Depression Edema of left foot d/t knee torn meniscus (?chronic) Fibromyalgia History of migraine Irritable bowel syndrome Morbid obesity Suspected sleep apnea Patient seen by sleep medicine 04/2021 who are arranging sleep study testing (not done yet per [facility]). Per sleep medicine, suspected ZAHIRA. Exercise / Class Metabolic Activity III < 4 Walking/Shop/Light housework Past Family History Family History Other No pertinent family history Past Surgical History Surgical History Difficult intubation Left knee scope with medial meniscus repair (07/12/20): Glidescope#3, ETT 7.5 at [facility] (DVLx1 with MAC#3 by ESPERANZA with no view, DVL x1 with Thompson #[address] Tomlinson with no view. LMA#5 placed without problems to ventilate. Pt NOT an easy mask. FOB tried for view of cords since glidescope not available. FOB not able to pass through cords. LMA replaced to ventilate. Glidescope#3 used with view of cords. ETT successfully placed. B/L tonsillar hypertrophy noted. H/O tubal ligation History of carpal tunnel surgery of right wrist History of section x2 History of colonoscopy 2018 History of endometrial ablation History of esophagogastroduodenoscopy (EGD) 2018 History of tonsillectomy Hx of arthroscopy of left knee Past Anesthesia History Difficult Airway and No Family Hx of Anesthesia Complications Difficult intubation: Left knee scope with medial meniscus repair (07/12/20): Glidescope#3, ETT 7.5 at [facility] (DVLx1 with MAC#3 by CAN TOP SETTER with no view, DVL x1 with Thompson #[address] Tomlinson with no view. LMA#5 placed without problems to ventilate. Pt NOT an easy mask. FOB tried for view of cords since glidescope not available. FOB not able to pass through cords. LMA replaced to ventilate. Glidescope#3 used with view of cords. ETT successfully placed. B/L tonsillar hypertrophy noted. Anesthesia note (07/12/20): "Patient had large neck and tongue on preoperative exam, but otherwise unremarkable preoperative airway asessment. Initially a rapid sequence intubation was attempted with a MAC3 blade by the CAN TOP SETTER. This yielded a grade IV view of the pharynx (no visible supraglottic structures) and very large 4+ tonsils were noted. A second attempt was then performed by the attending anesthesiologist with a thompson 3 blade which yielded the same view. At this point, the patient was difficult to ventilate with an oral airway and 2hand mask and so a #5 LMA was placed, which allowed for ventilation and oxygenation, and additional anesthetic doses while alternative methods were prepared. Next, a glidescope was used, which had some difficulty in placement to the back of the throat due to the very large tongue and tonsils. This yielded a view only of the tip of the epiglottis, and endotracheal tube placement was not attempted. Finally, the glidescope was used in combination with fiberoptic bronchoscopy, which was successful in intubating the patient. Of note, the difficult airway was discussed with the patient in recovery and she claims to have had tonsillectomy as a child. As clearly there was very large tonsil-like tissue on both sides of the pharynx. The patient and her mother were recommended to follow up on this with her PCP to decide it further diagnostic workup may be necessary for presumptive sleep apnea." History of PONV History of PONV and Hx of Motion Sickness Social History Smoking Status: Current every day smoker tobacco type: cigarettes Smoking cigarettes per day: 1 PPD x 15 years Do You Dip or Chew Tobacco: No Hx Alcohol Use: No Hx Substance Use: No substance use type: does not use Review of Systems Patient denies chest pain, shortness of breath, fever, chills, cough, wheezing, palpitations. Physical Exam Vital Signs VITALS BP 114/82 P 70 TEMP WNL SP02 96%RA RESP 16 PHYSICAL Full cervical extension range of motion. Full TMJ range of motion. TMD 3 finger breaths (difficult to palpate) Mallampati Score 3 Dentition: front right side tooth missing Lungs: clear throughout to auscultation Cardiac: regular rate and rhythm, no murmurs noted Spine: kyphosis vs fat pad Carotid arteries: negative bruit Extremities: no edema Short, thick neck Lab Results Anesthesia Preop Results Results Anesthesia Widget: WBC 8.72 K/uL (4.8-10.8) 05/17/21 Hgb 14.0 g/dL (12.0-16.0) 05/17/21 Hct 42.1 % (37-47) 05/17/21 Plt 343 K/uL (130-400) 05/17/21 Na 140 mmol/L (136-145) 05/17/21 K 4.2 mmol/L (3.5-5.1) 05/17/21 Cl 107 mmol/L (98-107) 05/17/21 CO2 29 mmol/L (21-32) 05/17/21 BUN 17 mg/dl (7-18) 05/17/21 Creat 0.70 mg/dl (0.6-1.2) 05/17/21 Glucose Level 90 mg/dl (70-99) 05/17/21 PT 9.9 Seconds (9.0-12.0) 05/17/21 PTT 27.0 Seconds (21.0-31.0) 05/17/21 INR 1.0 (0.9-1.1) 05/17/21 Blood Type A Positive 05/17/21 Antibody Screen NEGATIVE 05/17/21 Testing Laboratory Results 04/25/21 HGBA1C 5.4% Electrocardiogram Date: 10/03/20 NSR at 64bpm. Poor data quality.* Chest X-Ray Date: 05/17/21 Findings: + NAD
--- NOTE | 2021-06-06 15:29 | History & Physical Report ---
Date of Service June 06, 2021 Assessment & Plan (1) Localized osteoarthritis of left knee: We will proceed with a left knee replacement surgery. Postoperatively she will be started on aspirin for DVT prophylaxis and kept overnight in the hospital for postoperative medical management. She plans to get home health upon discharge. History of Present Illness Chief Complaint: Osteoarthritis of the left knee. Primary Care Provider: Gina Huston PA-C Neto is a pleasant 41-year-old female who has been dealing with chronic worsening left knee pain. She had a left knee arthroscopy done by Dr. Urban in June 2020. She has had a lot of knee pain since. She had a follow-up MRI in August 2020 and was treated with intra-articular cortisone injections and viscosupplementation. Unfortunate she still dealing with a lot of knee pain. I sent her for repeat MRI and the MRI showed advanced arthritis mostly involving the medial compartment. After failing conservative treatment, and after extensive discussions regarding her BMI and her age, she elected to proceed with a left total knee arthroplasty.. Allergies Allergy/AdvReac Type Severity Reaction Status Date / Time No Known Allergies Allergy Verified 05/15/21 10:55 Home Medications Medication Instructions Recorded Confirmed Type pantoprazole 40 mg tablet,delayed 40 mg PO QAM 07/03/20 05/15/21 History release (Protonix) fluoxetine 20 mg capsule 20 mg PO QAM 09/05/20 05/15/21 History ondansetron HCl 4 mg tablet 4 mg PO Q12 PRN 09/05/20 05/15/21 History (Zofran) acetaminophen 500 mg tablet 1,000 mg PO Q6H PRN 10/03/20 05/15/21 History Wheeled Walker #1 ea 05/03/21 Rx azithromycin 250 mg tablet 250 mg PO DAILY 05/15/21 05/15/21 History Past Med/Surg History Medical History Acid reflux uncontrolled Anxiety Carpal tunnel syndrome on left (s/p right surgical repair) Chiari malformation Follows with neuro- no current issues per last neuro note Depression Edema of left foot d/t knee torn meniscus (?chronic) Fibromyalgia History of migraine Irritable bowel syndrome Morbid obesity Suspected sleep apnea Patient seen by sleep medicine 04/2021 who are arranging sleep study testing (not done yet per [facility]). Per sleep medicine, suspected ZAHIRA. Surgical History Difficult intubation Left knee scope with medial meniscus repair (07/12/20): Glidescope#3, ETT 7.5 at [facility] (DVLx1 with MAC#3 by ESPERANZA with no view, DVL x1 with Thompson #[address] Tomlinson with no view. LMA#5 placed without problems to ventilate. Pt NOT an easy mask. FOB tried for view of cords since glidescope not available. FOB not able to pass through cords. LMA replaced to ventilate. Glidescope#3 used with view of cords. ETT successfully placed. B/L tonsillar hypertrophy noted. H/O tubal ligation History of carpal tunnel surgery of right wrist History of section x2 History of colonoscopy 2018 History of endometrial ablation History of esophagogastroduodenoscopy (EGD) 2018 History of tonsillectomy Hx of arthroscopy of left knee Family History Other No pertinent family history Social History Smoking Status: Current every day smoker Cigarettes Per Day: 1 PPD x 15 years; Second Hand Exposure: No; Hx Alcohol Use: No Hx Substance Use: No Preferred Language: Mongolian Communication Ability: Effective Visual Impairment: No Limitations Chronic Disease Epidemiologist Required: No Beliefs That Will Affect Care: None Current Living Situation: Family Current Living Situation Comment: Feels Safe at Home: Yes Assistive Devices: Glasses Review of Systems All systems reviewed & are unremarkable except as noted in HPI & below. Physical Exam On physical examination of the left knee, she has range of motion from 0 to 110 degrees. She has a large soft tissue envelope. She has no instability. She has pain over the distal medial femoral condyle and over the medial joint line.. Constitutional WD/WN, vitals as above Eyes PERRL, conjunctivae normal, anicteric sclerae ENMT external ear and nose normal, oropharynx normal Neck trachea midline, no thyromegaly Respiratory normal respiratory effort Cardiovascular RRR, no murmur, no edema Gastrointestinal (Abdomen) normal bowel sounds, soft, nontender, no hepatosplenomegaly Psychiatric A+Ox3, euthymic affect Results & Data Results & Data Laboratory Results . Diagnostic Findings X-rays of the left knee show mild to moderate arthritis. MRI of the left knee does show advanced arthritis mostly involving the medial compartment.. PG Care Time/CCT Total # of Minutes Spent Total Time Spent with Patient: Total time spent is greater than 50% in c oordination of care (as documented) at patient's floor/unit and/or counseling patient: Coding Level of Care Code None Diagnoses Localized osteoarthritis of left knee M17.12
[~2021-06-07 06:55] MED LIST changes: +ACETAMINOPHEN 500 MG TAB PO SCH; +BUPIVACAINE 0.5 % 5 MG/1 ML PF 10ML VIAL ONE; -CALC500C3 PO; -DICY20TA10 PO; +FAMOTIDINE 20 MG TAB PO SCH; +GABAPENTIN 900 MG DOSE PO SCH; -IBUP-1050 PO; +LR 500ML BOLUS, THEN 15ML/HR IV SCH; +LR 60ML/HR IV SCH; -ONDA-63 PO; -PANT40TA2 PO; +ROPIVACAINE 0.5% 5 MG/ML 30 ML VIAL ONE; +ROPIVACAINE 0.5% HCL/PF 150 MG, BUPIVACAINE 0.75% MPF 20 ML, EPINEPHrine 30MG/30ML (OR ... INSTIL SCH; +TRANEXAMIC ACID 1,000 MG **IV Intra-op IV SCH; +TRANEXAMIC ACID 1,000 MG **IV Pre-op IV SCH; +dexAMETHasone 4 MG TAB PO SCH
[2021-06-07] MEDS ORDERED: MIDAZOLAM HCL 1 MG/ML 2ML VIAL ONE ×2 (08:56)
[2021-06-07] MEDS ORDERED: LIDOCAINE 2% 2 ML VIAL/AMP(20MG/ML) INFIL ONE (08:56)
[2021-06-07] MEDS ORDERED: PROPOFOL IV EMULSION 10 MG/ML 20 ML VIAL IV ONE ×2 (08:56→12:07)
[2021-06-07] MEDS ORDERED: ONDANSETRON INJ 2 MG/ML 2 ML VIAL ONE (08:56)
--- NOTE | 2021-06-07 09:37 | History & Physical Bridge Note ---
Date of Service June 07, 2021 History & Physical Bridge Note I have examined the patient, reviewed the History & Physical and in the interval since the performance of the History & Physical I have noted the following changes of clinical significance: no changes noted
[2021-06-07] MEDS ORDERED: ORTHO JOINT ANESTHETIC ONE (10:20)
[2021-06-07] MEDS ORDERED: ONDANSETRON INJ 2 MG/ML 2 ML VIAL IV PRN ×2 (10:51→13:58)
[2021-06-07] MEDS ORDERED: ePHEDrine sulfate 50 MG/ML AMP IV PRN (10:51)
[2021-06-07] MEDS ORDERED: HYDROmorphone INJ 1 MG/ML SYRINGE IV PRN (10:51)
[2021-06-07] MEDS ORDERED: ATROPINE SULFATE 0.1 MG/ML 10ML SYR IV PRN (10:51)
[2021-06-07] MEDS ORDERED: PROMETHAZINE HCL 12.5 MG in SODIUM CHLORIDE 0.9% 50 ML IV PRN (10:51)
[2021-06-07] MEDS ORDERED: KETOROLAC 30 MG/ML VIAL IV PRN (10:51)
--- NOTE | 2021-06-07 12:16 | Operative Report ---
PG Post Operative Report Pre & Post Diagnosis Operation Date: 06/07/21 09:30 Pre-Op Diagnosis: OSTEOARTHRITIS/DEGENERATIVE JOINT DISEASE LEFT KNEE Post-Op Diagnosis: OSTEOARTHRITIS/DEGENERATIVE JOINT DISEASE LEFT KNEE I identified the patient and participated in the time-out.: Yes Procedure Operation Date: 06/07/21 09:30 Actual Procedures p Left Total Knee Arthroplasty(Left) with modifier 22 for obesity and a BMI of 52.2.- Surya Lopez DO Surgeon Surya Lopez DO Wire Wheeler Surya Cash PAC Estimated Blood Loss 10 Findings Consistent with Post-Op Diagnosis Specimens Left femoral and tibial bone. Complications none Disposition Disposition: Recovery Room Indications Neto is a pleasant 41-year-old female has been dealing with chronic worsening left knee pain. She had a knee scoped about a year ago. That did not help. Multiple MRIs and x-rays have showed arthritis in her left knee. We have had multiple discussions regarding her weight as well as her other comorbidities such as fibromyalgia and depression. After failing extensive conservative treatment, she elected proceed with a left total knee arthroplasty. Description of Procedure Modifier 22: This case took 50% longer than a standard left knee replacement surgery. She has a BMI 52.2. I had to use a larger skin incision and increased retractors. Implants used: I used a Merly Persona total knee arthroplasty system with a size 7 standard femur, F tibia with a 30 mm stem, 32 patella, and a size 11 medial congruent polyethylene bearing. All components were cemented in place with Simplex HV cement. Neto arrived [facility] for the above procedure. She was seen in the preoperative holding area and the operative extremity was identified and signed. She was given a preoperative antibiotic, TXA, a spinal anesthetic and an adductor nerve block. She was taken back to the operating room and laid on the table in supine position. She was given basic sedation. The operative knee was then prepped and draped in sterile fashion. A timeout was done, and the patient and the operative extremity was properly identified. A midline incision was made directly over the patella. Dissection was taken down to the extensor mechanism. A subvastus arthrotomy was used. The medial retinaculum was released and the fat pad was mostly excised. The knee was flexed and the ACL, PCL, and meniscus were removed. A drill was sent down the center of the femoral canal followed by an intramedullary bharti. Off that bharti a distal femoral cutting block was placed. 9 mm was resected off the distal femur at 5 of valgus. A posterior referencing AP sizing guide was then placed on the distal femur. The femur measured to be a size 7. 2 drill holes were placed in 3 of external rotation. A 4-in-1 cutting block was then impacted into place. Anterior, posterior, and chamfer cuts were then made. The proximal tibia was then exposed. An external tibial alignment guide was placed. A tibial cut guide was then anchored in place and the proximal tibia was then resected. The posterior aspect of the knee was then opened up and any additional meniscus fragments and osteophytes were removed. The tibia measured to be a size F. The tibial plate was then placed in the appropriate rotation and the tibia was drilled and punched. Trial components were then placed. I used a size 11 medial congruent polyethylene insert. The knee was brought through a full range of motion and felt to be stable. The peg holes for the femoral component were then drilled. The patella was then everted and 9 mm was resected off the posterior aspect of the patella. The patella measured to be a size 32. 3 peg holes were then drilled. A trial patella was placed. The knee was once again brought through a full range of motion and felt to be stable. Trial components were then removed. The surrounding soft tissues were injected with 100 cc of an orthopedic pain control cocktail. All components were then cemented into place with Simplex HV cement. The final polyethylene insert was then snapped into place. Once cement was dry the tourniquet was deflated. Hemostasis was obtained. A dilute betadyne lavage was then done for 3 minutes. The joint was then irrigated with normal saline solution. The subvastus arthrotomy was then closed with #1 Vicryl suture. The skin was closed with 2-0 Vicryl, 3-0V lock suture, and jose. A soft compressive dressing was placed. She was then transferred to a hospital bed and taken to the postanesthesia care unit in stable condition. She tolerated the procedure well. Surya Cash PA-C, was present for the entire procedure. He was critical for patient positioning, prepping, draping, retraction exposure, wound closure and application of sterile dressing. I attest to the content of the Intraoperative Record and any orders documented therein. Any exceptions are noted below.
--- NOTE | 2021-06-07 13:03 | XRay Report ---
LEFT KNEE 2 VIEWS History: Left total knee arthroplasty. Degenerative arthritis. Postop. FINDINGS: The patient is status post a left total knee arthroplasty. The hardware is intact. No fract ure or dislocation. Skin jose are in place. IMPRESSION: Left total knee arthroplasty. No evidence for hardware complication. ACT 112: Negative or not required by law. Electronically signed by: Haim Rubio M.D. 06/07/2021 1:02 PM
--- NOTE | 2021-06-07 13:19 | Anesthesiology Progress Note ---
Date of Service June 07, 2021 Anesthesia Post Procedure Vital Signs Vital Signs: Temp Pulse Pulse Resp BP Pulse Ox 06/07/21 13:10 36.4 C L 65 22 123/52 L 95 06/07/21 13:00 70 21 132/79 96 06/07/21 12:50 70 20 140/73 97 06/07/21 12:40 36.5 C 83 19 155/64 H 94 06/07/21 07:48 36.6 C 79 18 155/97 H 98 Pain Intensity Left Knee: Pain Intensity: 0 Transfer of Care Handoff Completed per policy Notes Mental Status: alert / awake / arousable Patient Amnestic to Procedure: Yes Nausea / Vomiting: adequately controlled Pain: adequately controlled Airway Patency, RR, SpO2: stable & adequate BP & HR: stable & adequate Hydration State: stable & adequate Neuraxial Anesthesia: was administered and sensory block is resolving Anesthetic Complications: no major complications apparent
[2021-06-07] MEDS ORDERED: NALOXONE HCL 0.4 MG/1 ML VIAL/CARP IV PRN (13:58)
[2021-06-07] MEDS ORDERED: MAGNESIUM HYDROXIDE SUSP 30 ML UDC PO PRN (13:58)
[2021-06-07] MEDS ORDERED: bisacodyL 10 MG SUPP PR PRN (13:58)
[2021-06-07] MEDS ORDERED: SODIUM CHLORIDE 0.9% 1000ML 1,000 ML IV SCH (13:58)
[2021-06-07] MEDS ORDERED: METOCLOPRAMIDE HCL INJ 5 MG/ML 2 ML VIAL IV PRN (13:58)
[2021-06-07] MEDS ORDERED: NICOTINE 21 MG/24 HR TDSY TD STA (14:30)
[2021-06-07] MEDS: ACETAMINOPHEN 500 MG TAB PO SCH ×2 (15:00→22:29)
[2021-06-07] MEDS: KETOROLAC 30 MG/ML VIAL IV SCH ×2 (16:00→22:29)
[2021-06-07] MEDS: HYDROmorphone INJ 0.5 MG/0.5 ML SYR IV PRN (18:36)
[2021-06-07] MEDS: oxyCODONE HCL IR 5 MG TAB (IMMEDIATE RELEASE) PO PRN (20:31)
[2021-06-07] MEDS: ceFAZolin 2000MG 2,000 MG/15 ML SYR IV SCH (20:32)
[2021-06-07] MEDS: DOCUSATE SODIUM 100 MG CAP PO SCH (20:33)
[2021-06-07] MEDS: ASPIRIN 81 MG ECTAB PO SCH (20:34)
[2021-06-07] MEDS ORDERED: SENNA 8.6 MG TAB PO SCH (21:00)
[2021-06-08] MEDS: HYDROmorphone INJ 0.5 MG/0.5 ML SYR IV PRN ×2 (00:17→07:48)
[2021-06-08] MEDS: ceFAZolin 2000MG 2,000 MG/15 ML SYR IV SCH (05:00)
[2021-06-08] MEDS: ACETAMINOPHEN 500 MG TAB PO SCH (05:00)
[2021-06-08] MEDS: KETOROLAC 30 MG/ML VIAL IV SCH ×2 (05:00→09:36)
[2021-06-08] MEDS: DOCUSATE SODIUM 100 MG CAP PO SCH (07:50)
[2021-06-08] MEDS: ASPIRIN 81 MG ECTAB PO SCH (07:51)
--- NOTE | 2021-06-08 07:57 | Orthopedic Progress Note ---
Date of Service June 08, 2021 Assessment & Plan (1) Status post left knee replacement: Overall she is doing very well. She denies any much pain in the left knee. She will be seen by physical therapy today for ambulation and range of motion exercises. She is on aspirin for DVT prophylaxis. She can be discharged home later today. She will follow-up with orthopedics in 2 weeks. Prateek Duque was seen and examined at bedside this morning. Overall she doing very well. She got any much pain in the left knee. She has been up and ambulating around the room. She has no complaints.. Review of Systems All systems reviewed & are unremarkable except as noted in HPI & below. Physical Exam On physical examination left knee, the dressing is clean and dry. Her leg is out full extension. She has active dorsiflexion plantarflexion of her left ankle.. Results & Data Results & Data Laboratory Results . Diagnostic Findings Postoperative x-rays of the left knee show the prosthesis to be in anatomic alignment without any evidence of fracture, dislocation, or loosening. PG Care Time/CCT Total # of Minutes Spent Total Time Spent with Patient: Total time spent is greater than 50% in coordination of care (as documented) at patient's floor/unit and/or counseling patient: Coding Level of Care Code 85802 Post Operative Follow-Up Diagnoses Status post left knee replacement Z96.652
--- NOTE | 2021-06-08 07:58 | Discharge Summary ---
Date of Service June 08, 2021 Admission HPI (Per Admitting) Neto is a pleasant 41-year-old female who has been dealing with chronic worsening left knee pain. She had a left knee arthroscopy done by Dr. Urban in June 2020. She has had a lot of knee pain since. She had a follow-up MRI in August 2020 and was treated with intra-articular cortisone injections and viscosupplementation. Unfortunate she still dealing with a lot of knee pain. I sent her for repeat MRI and the MRI showed advanced arthritis mostly involving the medial compartment. After failing conservative treatment, and after extensive discussions regarding her BMI and her age, she elected to proceed with a left total knee arthroplasty.. Admission Exam (Per Admitting) On physical examination of the left knee, she has range of motion from 0 to 110 degrees. She has a large soft tissue envelope. She has no instability. She has pain over the distal medial femoral condyle and over the medial joint line.. Principal Diagnosis Same as "Discharge Diagnosis" noted below under Discharge Instructions. Discharge Exam On physical examination left knee, the dressing is clean and dry. Her leg is out full extension. She has active dorsiflexion plantarflexion of her left ankle.. Discharge Data Procedures Performed Operation Date: 06/07/21 09:30 Actual Procedures p Left Total Knee Arthroplasty(Left) - Surya Lopez DO Ordered Studies 06/07/21 05:00 US - OR guided needle placemen Routine Hospital Course (1) Status post left knee replacement: On June 07, 2021 Neto arrived at [facility] and underwent a left knee replaced without complication. She had a spinal anesthetic. Postoperatively she was started on aspirin for DVT prophylaxis and transferred to the general orthopedic floors. Her hospital course was uneventful. On postop day #1 her vital signs were stable and her pain was well controlled. She was able to participate well with physical therapy doing ambulation and range of motion exercises. She was then discharged home. She will follow-up with orthopedics in 2 weeks. PG Care Time/CCT Total # of Minutes Spent Total Time Spent with Patient: Total time spent is greater than 50% in coordin ation of care (as documented) at patient's floor/unit and/or counseling patient: Discharge Plan Discharge Items Patient Disposition: Home - Home Health Services Reason For Visit: DJd Knee Left Discharge Diagnosis: Left knee replacement Activity: As commented below Non-emergency contact: Surgeon Call non-emergency contact if: your wound has increased redness and your wound has increased drainage Follow-up/Referrals: Gina Huston PA-C [Primary Care Provider] - Diet: Regular Addtl Attending Provider Instructions: Activity and Therapy Recommendations: * If you are using [facility] then therapy will be provided at your home until they feel you have accomplished all of your goals. * If you are using [facility] then Physical Therapy will be provided until they feel you are ready to start Outpatient Physical Therapy. * If you are not using home therapy then Outpatient Physical Therapy should start about 3-5 days from your day of surgery. Therapy will last about 6-10 weeks * It is important not to put a pillow under your knee when you are relaxing or sleeping. It is just as important to make sure you are getting your knee perfe ctly straight as it is to regain your knee bend. * You were shown a series of exercises in the hospital. Do these exercises three times each day including the exercises you were shown in physical therapy. * Get up and walk several times each day. For the first four weeks, try not to stand or walk for more than one hour at a time. If you do stand or walk for more than one hour, you will not hurt anything, but your leg will likely swell. * As you feel comfortable, you may change from the walker or crutches to a cane and then to independent walking. Medications: * Narcotic You will likely be sent home from the hospital with a prescription for the narcotic pain medication that worked best throughout your stay. * Aspirin Most patients will be required to take Aspirin 81mg twice a day for 6 weeks after surgery. This is obtained [id number] and a prescription is not necessary. * Other medications may be prescribed for specific circumstances. If you have any questions, please call the office at . * Resume previous home medications unless otherwise instructed TEDs/Elastic Stockings: The white elastic stockings help limit swelling and prevent blood clots from forming in your legs.~ The more you wear them, the more they work. Wear them for six weeks. Dressing Care: The dressing can be changed after physical therapy on postop day #1. Daily dry dressing changes for a few days, especially if the incision is still draining some. If the incision is not draining then you may leave the jose open to air. If there is a little bit of drainage or if the jose are getting stuck on your clothing then cover the incision with a dry dressing. The jose will be removed at your 2 week follow-up appointment. Showering: You may shower 5 days from the day of surgery as long as the incision is no longer draining. You may shower with the jose exposed. Let soapy water run over the jose and pat them dry. Do not scrub or soak the incision. Things To Watch For: * Drainage from the incision site that occurs more than one week after your surgery. * Increased redness at the incision site. * Fever above 102 degrees Fahrenheit. * Unusual chest pain or shortness of breath. * Call [facility] at with any of the above problems Follow-Up Visit: Follow-up with Dr. Lopez's PA (Surya Cash) 2-3 weeks after your day of surgery. He will remove your jose and answer any questions. If you have any additional questions or concerns, Dr Lopez is usually in the office at the same time and will be available An appointment was probably scheduled when you signed-up for surgery in the office. If you have any questions call Office Instructions: More detailed instructions as well as Frequently Asked Questions were provided in a folder by our office when you signed-up for surgery. Please review these instructions when you get home. If you have any further questions or concerns, please feel free to call the office at [phone] Pending Studies at Discharge: No Stand-Alone Forms: [facility] [employer], Smoking Cessation Medications and DC Order Prescriptions: New oxycodone-acetaminophen 5-325 mg tablet 1 tab PO Q6H PRN (Reason: pain) Qty: 60 RF: 0 aspirin 81 mg Tablet,Delayed Release (Dr/Ec) 81 mg PO BID 42 Days Qty: 84 RF: 0 Continued (DME) Wheeled Walker Misc See Rx Instructions .MEDSUPPLY Qty: 1 RF: 0 pantoprazole [Protonix] 40 mg Tablet,Delayed Release (Dr/Ec) 40 mg PO QAM RF: 0 ondansetron HCl [Zofran] 4 mg tablet 4 mg PO Q12 PRN (Reason: Nausea) RF: 0 fluoxetine 20 mg capsule 20 mg PO QAM RF: 0 acetaminophen 500 mg Tablet 1,000 mg PO Q6H PRN (Reason: Pain) RF: 0 azithromycin 250 mg tablet 250 mg PO DAILY RF: 0 Discharge Orders: Discharge Order (Routine); Ordered 06/08/21 Ordered By: Surya Lopez Admission Data Admit Date/Time: 06/07/21 12:43 Attending Provider: Surya Lopez Admit Provider: Surya Lopez Primary Care Provider: Gina Huston Other Providers: [facility],Home Healthcare
[2021-06-08] MEDS ORDERED: dexAMETHasone 4 MG TAB PO SCH (08:00)
[2021-06-08] MEDS: oxyCODONE HCL IR 5 MG TAB (IMMEDIATE RELEASE) PO PRN (08:48)
[2021-06-08] MEDS ORDERED: NICOTINE 21 MG/24 HR TDSY TD SCH (09:00)
[2021-06-08] MEDS ORDERED: FLUoxetine HCL 20 MG CAP PO SCH (09:00)
[2021-06-08] MEDS ORDERED: MULTIVITAMIN TAB PO SCH (09:00)
== END 2021-06-08 10:50 | disposition home health service (06) ==
LOC: 3E 06:55 → ASU 06:55

== ENCOUNTER 2024-04-22 13:19 | Inpatient (IN) ==
[2024-04-22] MEDS ORDERED: ACETAMINOPHEN 325 MG TAB PO PRN (15:13)
[2024-04-22] MEDS ORDERED: ALBUTEROL HFA 8 GM INHALER INH PRN (15:17)
[2024-04-22] MEDS: oxyCODONE HCL IR 5 MG TAB (IMMEDIATE RELEASE) PO PRN (16:32)
[2024-04-22] MEDS: LACTATED RINGER'S 1,000 ML IV SCH (16:32)
[2024-04-22 16:47] LABS: Basophils # (auto) 0.05 K/uL (0.00-0.20); Basophils % (auto) 0.3 %; Eosinophils # (auto) 0.15 K/uL (0.00-0.50); Eosinophils % (auto) 0.8 %; Hematocrit (blood only) 40.9 % (37.0-47.0); Hemoglobin 13.5 g/dl (12.0-16.0); Immature Granulocytes # (auto) 0.17 K/uL (0.01-0.20); Immature Granulocytes % (auto) 0.9 %; Lymphocytes # (auto) 1.36 K/uL (1.20-3.40); Mean Platelet Volume 9.7 fL (9.4-12.4); Monocytes # (auto) 0.86 K/uL (0.11-0.59); Monocytes % (auto) 4.4 %; Neutrophils # (auto) 16.87 K/uL (1.40-6.50); Neutrophils % (auto) 86.6 %; Platelet Count 376 K/uL (130-400); RDW Coefficient of Variation 13.8 % (11.5-14.5); RDW Standard Deviation 47.7 fL (36.4-46.3); Red Blood Count 4.35 M/uL (4.20-5.40); White Blood Count 19.46 K/ul (4.8-10.8)
[2024-04-22 16:55] LABS: Albumin Globulin Ratio 0.9 (0.9-2); Albumin Level 3.6 gm/dl (3.4-5.0); Calcium 9.2 mg/dl (8.6-10.3); Creatinine Clr Calc Pharmacy 132.7 ml/min; Est GFR (Non-African American) 89.8 ml/min; Globulin 3.8 gm/dl (2.5-4.0); Potassium 3.8 mmol/L (3.5-5.1); Total Protein 7.4 gm/dl (6.0-8.3)
--- NOTE | 2024-04-22 17:03 | History & Physical Report ---
Date of Service April 22, 2024 Assessment & Plan (1) Cellulitis, wound, post-operative: Plan: IV antibiotics Admission and Anticipated Discharge Date Admission Date: April 22, 2024 History of Present Illness Chief Complaint: wound infection Primary Care Provider: Gina Huston PA-C 44 F s/p laparoscopic left BSO on 04/15/24 admitted for worsening wound infection post op. Patient was seen 2 days again the ER at [facility] and was recommended to stay for IV antibiotics and patient refused treatment as inpatient at that time. She was given PO antibiotics and was seen today in the office by Dr. Murray who examined her and opened wound and packed it. Allergies Allergy/AdvReac Type Severity Reaction Status Date / Time metformin AdvReac Intermediate Gastrointestinal Verified 04/15/24 08:47 Upset naltrexone AdvReac Intermediate Nausea Verified 04/15/24 08:47 Home Medications Medication Instructions Recorded Confirmed Type Wheeled Walker #1 ea 05/03/21 03/15/23 Rx omeprazole 40 mg capsule,delayed 40 mg PO QAM 01/23/23 04/15/24 History release cholecalciferol (vitamin D3) 50 2,000 unit PO WK 03/15/23 04/15/24 History mcg (2,000 unit) capsule fluticasone propionate 50 2 spray intranasal QAM PRN 03/15/23 04/15/24 History mcg/actuation nasal Congestion spray,suspension triamcinolone acetonide 0.1 % 1 applic topical BID PRN Skin 03/15/23 04/15/24 History topical cream Irritation albuterol sulfate 90 mcg/actuation 2 inh inhalation UD PRN WHEEZING 04/06/23 04/15/24 History aerosol inhaler OR DYSPNEA semaglutide (weight loss) 2.4 2.4 mg subcut WK 07/12/23 04/15/24 History mg/0.75 mL subcutaneous pen injector (Wegovy) ibuprofen 600 mg tablet 600 mg PO Q6H #30 tabs 04/15/24 Rx oxycodone-acetaminophen 5 mg-325 1 tab PO Q4H #24 tabs 04/15/24 Rx mg tablet (Percocet) cephalexin 500 mg capsule 500 mg PO Q6H 10 days #40 caps 04/20/24 Rx oxycodone 5 mg tablet 5 mg PO Q8H PRN pain #31 tabs 04/20/24 Rx Patient History Medical History Hx of rotator cuff tear Seasonal allergies Reason for PRN inhaler per patient History of COVID-19 05/2022- fever, cough, loss of taste and smell Morbid obesity Taking wegovy for weight loss Chiari malformation Follows with [facility] neuro, last seen 07/2023 History of migraine Fibromyalgia Acid reflux Irritable bowel syndrome Depression Anxiety Carpal tunnel syndrome Left (s/p right surgical repair) Surgical History Difficult intubation Left knee scope with medial meniscus repair (07/12/20): Glidescope#3, ETT 7.[address] [facility] (DVLx1 with MAC#3 by ESPERANZA with no view, DVL x1 with [place] #[address] Tomlinson with no view. LMA#5 placed without problems to ventilate. Pt NOT an easy mask. FOB tried for view of cords since glidescope not available. FOB not able to pass through cords. LMA replaced to ventilate. Glidescope#3 used with view of cords. ETT successfully placed. B/L tonsillar hypertrophy noted. Right shoulder arthroscopy, RCR (06/01/23): "2 people hand mask ventilation with oral airway with good volumes.. [place]#3 with view of cords, able to place ETT with minimal difficulty" Hx of arthroscopy of left knee History of carpal tunnel surgery of right wrist History of section x2 History of esophagogastroduodenoscopy (EGD) History of colonoscopy History of tonsillectomy History of endometrial ablation Family History Other No pertinent family history Social History Smoking Status: Current every day smoker Tobacco Type: Cigarettes Cigarettes Per Day: 5 per day- advised; Second Hand Exposure: No; Do You Dip or Chew Tobacco: No; Tobacco Cessation Education Requested by Patient: No Hx Alcohol Use: No Hx Substance Use: No Preferred Language: Tanzanian Communication Ability: Effective Visual Impairment: No Limitations Scrap Drop Engineer Required: No Beliefs That Will Affect Care: None marital status: Single Current Living Situation: Family Current Living Situation Comment: Other Information That Helps Us Care for You: No Feels Safe at Home: Yes Safety Concerns: Feels Safe At This Time Assistive Devices: None Review of Systems All systems reviewed & are unremarkable except as noted in HPI & below Physical Exam Constitutional: WD/WN, vitals as above Eyes: PERRL, conjunctivae normal, anicteric sclerae Cardiovascular: RRR, no murmur, no edema Gastrointestinal (Abdomen): Inspection/Auscultation: abdomen normal to inspection abdomen is soft without rebound or guarding. left side incision is erythematous, swollen and tender to touch. No active drainage noted. Musculoskeletal: Extremities: extremities normal to inspection Neurologic: patellar DTR's 2+ bilat, sensation intact Psychiatric: A+Ox3, euthymic affect Results & Data Vital Signs (Past 12 Hours) Vital Signs Temp Pulse Resp BP Pulse Ox O2 Del Method 04/22/24 14:29 36.4 C L 85 22 134/82 99 Room Air Laboratory Results Laboratory Results - last 72 hr 04/22/24 16:25 WBC 19.46 H RBC 4.35 Hgb 13.5 Hct 40.9 MCV 94.0 MCH 31.0 MCHC 33.0 RDW Std Deviation 47.7 H RDW Coeff of Andreia 13.8 Plt Count 376 MPV 9.7 Immature Gran % (Auto) 0.9 Neut % (Auto) 86.6 Lymph % (Auto) 7.0 [place] % (Auto) 4.4 Eos % (Auto) 0.8 Baso % (Auto) 0.3 Neut # (Auto) 16.87 H Lymph # (Auto) 1.36 [place] # (Auto) 0.86 H Eos # (Auto) 0.15 Baso # (Auto) 0.05 Immature Gran # (Auto) 0.17 Sodium 136 Potassium 3.8 Chloride 102 Carbon Dioxide 27 Anion Gap 7 BUN 15 Creatinine 0.79 Est Cr Clr Drug Dosing 132.7 Est GFR ( Amer) 104.0 Est GFR (Non-Af Amer) 89.8 BUN/Creatinine Ratio 19.0 Glucose 119 H Calcium 9.2 Total Bilirubin 1.0 AST 12 L ALT 15 Alkaline Phosphatase 87 Total Protein 7.4 Albumin 3.6 Globulin 3.8 Albumin/Globulin Ratio 0.9 Coding Level of Care Code 31229 INT INP/OBS CARE 1/40MIN Diagnoses Cellulitis, wound, post-operative T81.49XA
[2024-04-22] MEDS: cefOXitin 2,000 MG in DEXTROSE 5 % MINI-B 50 ML IV SCH (17:09)
[2024-04-22] MEDS: IBUPROFEN 600 MG TAB PO SCH (18:45)
[2024-04-22] MEDS: ENOXAPARIN INJ 40 MG/0.4 ML SYR SQ SCH (18:45)
[2024-04-22] MEDS: HYDROmorphone HCL 2 MG TAB PO PRN (20:31)
[2024-04-22] MEDS: SULFAMETHOXAZOLE/TRIMETHOPRIM DS 800/160MG TAB PO SCH (20:32)
--- NOTE | 2024-04-22 20:41 | Emergency Department Note ---
ED Visit Note Positive blood culture received, notified admitting Dr. Galeano. .
[2024-04-22] MEDS: ZOLPIDEM TARTRATE 5 MG TAB PO PRN (21:28)
[2024-04-22] MEDS: LORazepam 0.5 MG TAB PO PRN (22:42)
[2024-04-23 07:34] LABS: Basophils # (auto) 0.05 K/uL (0.00-0.20); Basophils % (auto) 0.3 %; Eosinophils # (auto) 0.18 K/uL (0.00-0.50); Eosinophils % (auto) 1.1 %; Hematocrit (blood only) 40.7 % (37.0-47.0); Hemoglobin 13.3 g/dl (12.0-16.0); Immature Granulocytes # (auto) 0.13 K/uL (0.01-0.20); Immature Granulocytes % (auto) 0.8 %; Lymphocytes # (auto) 1.59 K/uL (1.20-3.40); Lymphocytes % (auto) 9.6 %; Mean Corpuscular Hemoglobin 30.8 pg (25.0-34.0); Mean Corpuscular Hgb Conc 32.7 g/dL (32.0-36.0); Mean Corpuscular Volume 94.2 fL (80.0-100.0); Mean Platelet Volume 9.7 fL (9.4-12.4); Monocytes # (auto) 0.98 K/uL (0.11-0.59); Monocytes % (auto) 5.9 %; Neutrophils # (auto) 13.57 K/uL (1.40-6.50); Neutrophils % (auto) 82.3 %; Platelet Count 426 K/uL (130-400); RDW Standard Deviation 48.5 fL (36.4-46.3); Red Blood Count 4.32 M/uL (4.20-5.40)
[2024-04-23] MEDS: PANTOprazole 40 MG TAB PO SCH (08:06)
--- NOTE | 2024-04-23 09:01 | Progress Note ---
Date of Service April 23, 2024 Assessment & Plan (1) Cellulitis, wound, post-operative: Plan: S/p Abdominal cellulitis Pt on antibx Afebrile Wound debrided, irrigated with saline and packed with gauze x2 Admission and Anticipated Discharge Date Admission Date: April 22, 2024 Results & Data Vital Signs (Past 12 Hours) Vital Signs Temp Pulse Resp BP Pulse Ox O2 Del Method 04/23/24 07:40 36.3 C L 70 16 98/64 L 92 Room Air
[2024-04-23 09:04] LABS: Albumin Level 3.4 gm/dl (3.4-5.0); Bilirubin,Total 0.8 mg/dl (0.2-1.0); Calcium 8.8 mg/dl (8.6-10.3); Potassium 3.6 mmol/L (3.5-5.1)
[2024-04-23 09:10] LABS: Albumin Globulin Ratio 0.9 (0.9-2); BUN Creatinine Ratio 15.9 (10-20); Creatinine Clr Calc Pharmacy 151.9 ml/min; Est GFR (Non-African American) 104.4 ml/min; Globulin 3.6 gm/dl (2.5-4.0)
[2024-04-23] MEDS: CALCIUM CARBONATE 500 MG CHEWABLE TAB PO PRN (11:20)
--- OUTSIDE RECORDS SUMMARY | 2024-04-23 17:03 | External Medical Summary | Summary of Care ---
Author Name Unknown Organization [facility] Address [address] [place] [address] Phone [phone] Care Team Providers Care Lapel Stitcher Name Role Phone Fermin Ontiveros MD Primary Care Provider [phone] Encounter Details Date Type Department Care Team (Late st Contact Info) Description 04/21/2024 Telephone Gynecology/Obstetrics [facility] [address] [facility] [place] [address] Toy Murray MD [address] [facility] [address] Allergies Active Allergy Reactions Criticality Noted Date Comments Metformin 07/31/2021 Gi upset diarrhea Naltrexone 04/12/2019 Nausea documented as of this encounter (statuses as of 04/21/2024) Medications Medication Sig Dispensed Refills Start Date End Date Status Ventolin HFA 108 (90 Base) MCG/ACT Inhalation Aerosol SolutionIndications:S OB (shortness of breath),Acute URI,Wheezing Inhale by mouth 2 Puffs every 4 hours as needed for Wheezing or Dyspnea. 1 g 08/20/2022 Active Cetirizine HCl 10 MG Oral Capsule Take by mouth 1 Capsule in the morning. 30 Capsule 1 09/25/2022 Active Clindamycin Phosphate 1 % External Gel Apply to body folds and face twice daily 60 g 5 01/12/2023 Active rOPINIRole HCl 0.25 MG Oral Tablet (Requip)Indications:R estless legs syndrome TAKE 1 TABLET BY MOUTH AT BEDTIME 90 Tablet 10/09/2023 Active Famotidine 20 MG Oral Tablet (Pepcid) Take 1 Tablet by mouth at bedtime. 90 Tablet 2 10/28/2023 Active Varenicline Tartrate 1 MG Oral TabletIndications:Tob acco use Take 1 Tablet by mouth in the morning and 1 Tablet before bedtime. 56 Tablet 1 12/29/2023 Active Triamcinolone Acetonide 0.1 % External Cream (Aristocort)Indicatio ns:Urticaria Apply topically to affected area 2 times a day. 80 g 1 12/29/2023 Active oxyCODONE-Acetaminoph en 5-325 MG Oral Tablet (Percocet) Take 1 Tablet by mouth every 4 hours as needed for Pain, Breakthrough. 28 Tablet 01/08/2024 Active Vitamin D (Ergocalciferol) 1.25 MG (26100 UT) Oral Capsule (Drisdol) Take 1 Capsule by mouth once a week. 8 Capsule 01/26/2024 Active Vilazodone HCl 20 MG Oral Tablet (Viibryd) Take 1 Tablet by mouth in the morning. 30 Tablet 1 01/27/2024 Active Omeprazole 40 MG Oral Capsule Delayed Release (PriLOSEC)Indications :Gastroesophageal reflux disease with esophagitis, unspecified whether hemorrhage Take 1 Capsule by mouth in the morning. 90 Capsule 1 01/28/2024 Active Fluticasone Propionate 50 MCG/ACT Nasal Suspension (Flonase)Indications: Allergic rhinitis due to pollen, unspecified seasonality Administer 2 Sprays into each nostril in the morning. 48 g 1 01/28/2024 Active Minocycline HCl 100 MG Oral CapsuleIndications:Hi dradenitis Take 1 Capsule by mouth in the morning. 90 Capsule 1 2024 Active Chlorhexidine Gluconate 2 % External Liquid (Scrub-Stat) Apply to affected area and wash off 3 times weekly to prevent outbreaks 118 mL 1 2024 Active Magnesium Citrate Oral Solution Take 296 ml solution 5 PM the night before surgery 296 mL 03/21/2024 Active oxyCODONE-Acetaminoph en 5-325 MG Oral Tablet (Percocet) Take 1 Tablet by mouth every 4 hours as needed for Severe Pain 24 Tablet 03/21/2024 Active Ondansetron 4 MG Oral Tablet Disintegrating (Zofran)Indications:N ausea Place 1 Tablet on tongue and dissolve every 8 hours as needed for Vomiting. 20 Tablet 1 04/15/2024 Active Ibuprofen 600 MG Oral Tablet (Motrin) take 1 tablet (600 mg )orally every 6 hours 30 Tablet 04/15/2024 Active Ondansetron 8 MG Oral Tablet Disintegrating (Zofran) take 1 tablet (8 mg )orally every 8 hours for 3 days 21 Tablet 04/15/2024 Active oxyCODONE-Acetaminoph en 5-325 MG Oral Tablet (Percocet) take 1 tablet by mouth every 4 hours as needed 24 Tablet 04/15/2024 Active Cephalexin 500 MG Oral Capsule (Keflex) take 1 capsule (500 mg) orally every 6 hours for 10 days 40 Capsule 04/20/2024 Active oxyCODONE HCl 5 MG Oral Tablet (Oxy IR) take 1 tablet (5 mg) orally every 8 hours As Needed for pain 31 Tablet 04/20/2024 Active Wegovy 2.4 MG/0.75ML Subcutaneous Solution Auto-injector (Semaglutide-Weight Management)Indication s:Morbid obesity due to excess calories (HCC) Inject 2.4 mg under the skin once a week. 3 mL 04/21/2024 Active documented as of this encounter (statuses as of 04/21/2024) Active Problems Problem Noted Date Diagnosed Date ZAHIRA (obstructive sleep apnea) 09/04/2022 Chronic allergic rhinitis 09/04/2022 Globus sensation 07/22/2022 ETD (Eustachian tube dysfunction), bilateral Persistent depressive disord er with anxious distress, currently moderate 02/18/2021 Recurrent major depressive disorder, in full rem ission 10/08/2020 NII (generalized anxiety disorder) 10/08/2020 Morbid obesity with body mass index of 50.0-59.9 in adult 05/17/2018 Idiopathic peripheral neuropathy 10/02/2016 Hyperinsulinemia 03/25/2016 Gastroesophageal reflux disease with esophagitis 10/31/2010 Tobacco use disorder 10/07/2010 Migraine with aura Overview: weekly documented as of this encounter (statuses as of 04/21/2024) Resolved Problems Problem Noted Date Diagnosed Date Resolved Date Prediabetes 08/04/2022 12/03/2023 Overview: Per Prediabetes protocol Food insecurity 08/04/2022 08/06/2023 Overview: Per [facility] Protocol Food insecurity 08/05/2021 03/06/2022 Overview: Per [facility] Protocol Obesity, morbid (more than 1 00 lbs over ideal weight or BMI > 40) 04/22/2018 05/17/2018 Body mass index (BMI) of 50. 0 to 59.9 in adult 08/24/2017 04/22/2018 Overview: Per Obesity protocol #1 Adenomatous polyp 07/22/2017 10/08/2020 Abdominal pain, generalized 03/17/2017 06/25/2017 Obstipation 03/10/2017 06/25/2017 Left ovarian cyst 03/10/2017 10/08/2020 Overview: Seen on CT at [facility]: 3 cm water attenuation, likely cyst Will get US. Family history of MS (multiple sclerosis) 12/27/2015 06/25/2017 Other acute sinusitis 07/24/20152016 Chronic rhinitis 07/24/2015 06/25/2017 Cough 07/24/2015 03/10/2017 Piriformis syndrome of right side 12/12/2014 03/10/2017 Inflammation of sacroiliac joint 12/12/2014 03/10/2017 Obesity, morbid (more than 1 00 lbs over ideal weight or BMI > 40) 06/30/2014 03/10/2017 Overview: bmi= 49.02 06/30/14 Knee pain, right 06/30/2014 03/10/2017 Patellofemoral syndrome, right 06/30/2014 07/06/2018 Obesity, morbid (more than 1 00 lbs over ideal weight or BMI > 40) 01/10/2014 03/10/2017 Body mass index (BMI) of 40.0-44.9 in adult 10/31/2010 03/10/2017 Overview: ICD-10 update of inactive term MORBID OBESITY, BMI= 45.34 10/07/10 10/07/2010 03/10/2017 Pityriasis rosea 10/07/2010 07/06/2018 DERMATITIS, LEFT ELBOW 10/07/201003/10 Neoplasm of uncertain behavior of skin 10/07/2010 03/10/2017 Morbid Obesity, BMI = 46.05 02/27/10 02/27/2010 10/31/2010 SLOW TRANSIT CONSTIPATION/OBSTIPATION 02/27/2010 03/10/2017 Urinary tract infection 02/27/201002/21 Nausea 02/27/2010 03/10/2017 Overview: ICD-10 update of inactive term Abdominal pain, generalized 02/27/2010 03/10/2017 Hypertrophic and atrophic condition of skin 02/27/2010 03/10/2017 Endometriosis 02/20/2020 Esophageal reflux 10/31/2010 Overview: was on protonix Major depressive disorder Overview: - no meds ICD-10 update of inactive term documented as of this encounter (statuses as of 04/21/2024) Immunizations Name Administration Dates Next Due COVID-19 mRNA, LNP-s, No Pre serve, 2-Dose Series (Pfizer) 03/21/2021,02/28/2021 PPD 01/27/2022 Pneumococcal Conjugate Vacci ne, 20-valent ([id number]) 07/29/2022 Pneumococcal Polysaccharide PPV23 (Pneumovax) 01/09/2011 Seasonal Influenza, PF, 6 M & above, IM , (FluLaval or Fluzone) 10/21/2022,08/02/2020,01/05/2018 TD, Preservative Free 04/03/2021 TDAP, Age 7 and older, IM (Adacel) 01/09/2011 01/09/2021 documented as of this encounter Social History Tobacco Use Types Packs/Day Years Used Date Smoking Tobacco: Every Day Cigarettes 0.3 16 Passive Smoke Exposure: Current Smokeless Tobacco: Never Comments:began at age 14 in process of quitting- smoking 4 cigarettes a day as of 06/15/18 Alcohol Use Standard Drinks/Week Comments No 0 (1 standard drink = 0.6 oz pur e alcohol) PHQ-2 Answer Date Recorded PHQ Adult Total Score 8 10/12/2023 Hunger Vital Sign Answer Date Recorded Within the past 12 months, y ou worried that your food would run out before you got the money to buy more. Patient declined Within the past 12 months, t he food you bought just didn't last and you didn't have money to get more. Patient declined Sex and Gender Information Value Date Recorded Sex Assigned at Female 04/12/2019 8:45 AM EDT Gender Identity Female 04/12/2019 8:45 AM EDT Sexual Orientation Straight 04/12/2019 8: 45 AM EDT Job Start Date Occupation Industry Not on file Not on file Not on file documented as of this encounter Miscellaneous Notes * Telephone Encounter - Li Gurrola RN - 04/21/2024 11:37 AM EDT Pt was seen in the ER yesterday by Dr. Murray. She was told she has an abscess there that needs drained. She was to make an appt to have it drained tomorrow. Will review with Dr. Murary and call back. Pt can be reached at [phone]. Per DR. Murray, he would like to see pt tomorrow. Spoke with pt and appt made. documented in this encounter Plan of Treatment Upcoming Encounters Date Type Department Care Team (Late st Contact Info) Description 04/22/2024 11:15 AM EDT Office Visit Gynecology/Obstetrics [facility] [address] [address] Toy Murray MD [address] [address] 05/02/2024 11:45 AM EDT Office Visit Gynecology/Obstetrics [facility] [address] [address] Toy Murray MD [address] [address] 09/21/2024 3:40 PM EDT Office Visit Dermatology [facility] [address] [place] [address] Jacob Schwarz PA-C [address] [place] [id number] Scheduled Procedures Name Priority Associated Diagnoses Date/Ti me COLONOSCOPY FLEXIBLE PROXIMA L DIAGNOSTIC Recall History of colonic polyps Health Maintenance Due Date Last Done Comments Hepatitis B (1 of 3 - 19+ 3-dose series) 1997 Cologuard 2023 Fecal Occult Blood Test 2023 Sigmoidoscopy 2023 COVID-19 Vaccine ( season) 2023 03/21/2021, 02/28/2021 Influenza Vaccine (FLU shot) (Season Ended) 2024 10/21/2022, 08/02/2020, 01/05/2018 Mammogram 12/21/2024 12/21/2023, 03/27/2021 Colonoscopy 04/09/2026 04/09/2023, 01/21, 07/14/2017, Additional history exists Colorectal Cancer Screening 04/09/2026 Pap Smear 12/22/2026 12/22/2023, 03/23, 01/05/2018, Additional history exists Diabetes Screening 03/24/2027 03/24/2024, 0 01/25/2024, 05/18/2023, Additional history exists Lipid Panel 02/17/2028 02/16/2023, 09/23, 03/18/2016, Additional history exists Cervical Cancer Screening 12/22/2028 HPV/Co-Test 12/22/2028 12/22/2023 DTaP,Tdap,and Td Vaccines (3 - Td or Tdap) 04/03/2031 04/03/2021, 01/09/2011 Pneumococcal Vaccine: Pediatrics (0 to 5 Years) and At-Risk Patients (6 to 64 Years) Completed 07/29/2022, 01/09/2011 GARDASIL-HPV IMMUNIZATION SERIES Aged Out No longer eligible based on patient's age to complete this topic MENINGOCOCCAL (MENACTRA/MENVEO) Aged Out No longer eligible based on patient's age to complete this topic documented as of this encounter Medical Devices Not on filedocumented as of this encounter Care Teams Lapel Stitcher Relationship Specialty Start Date End Date March, Fermin Ryder MD [address] [address] PCP - General Family Medicine 10/09/23 documented as of this encounter
--- OUTSIDE RECORDS SUMMARY | 2024-04-23 17:04 | External Medical Summary | Summary of Care ---
Author Name Unknown Organization [facility] Address [address] [place] [address] Phone [phone] Care Team Providers Care Laborer Filter Plant Name Role Phone Fermin Ontiveros MD Primary Care Provider [phone] Reason for Visit * Reason Onset Date Comments Advice 04/20/[address] Valerio er Encounter Details Date Type Department Care Team ([facility] st Contact Info) Description 04/20/2024 Telephone Gynecology/Obstetrics [facility] [address] [place] [address] Toy Murray MD [address] [address] Advice (Rev with Dr. Galeano) Allergies Active Allergy Reactions Criticality Noted Date Comments Metformin 07/31/2021 Gi upset diarrhea Naltrexone 04/12/2019 Nausea documented as of this encounter (statuses as of 04/20/2024) Medications Medication Sig Dispensed Refills Start Date [...] 01/08/2024 Active Vitamin D (Ergocalciferol) 1.25 MG (60769 UT) Oral Capsule (Drisdol) Take 1 Capsule [...] prevent outbreaks 118 mL 1 2024 Active Wegovy 2.4 MG/0.75ML Subcutaneous Solution Auto-injector (Semaglutide-Weight Management)Indication s:Morbid obesity due to excess calories (HCC) INJECT 2.4 MG (1 PEN) UNDER THE SKIN ONCE A WEEK. 9 mL 02/16/2024 Active Magnesium Citrate Oral Solution Take 296 [...] hours as needed 24 Tablet 04/15/2024 Active documented as of this encounter (statuses as of 04/20/2024) Active Problems Problem Noted Date Diagnosed Date [...] as of this encounter (statuses as of 04/20/2024) Resolved Problems Problem Noted Date Diagnosed Date [...] 03/10/2017 10/08/2020 Overview: Seen on CT at [facility]: 3 cm water attenuation, likely cyst [...] as of this encounter (statuses as of 04/20/2024) Immunizations Name Administration Dates Next Due COVID-19 mRNA, LNP-s, No Pre serve, 2-Dose Series ([employer]Color) 03/21/2021,02/28/2021 PPD 01/27/2022 Pneumococcal Conjugate Vacci ne, 20-valent ([id number]) 07/29/2022 Pneumococcal Polysaccharide PPV23 (Pneumovax) 01/09/2011 Seasonal Influenza, PF, 6 M & above, IM , (FluLaval or Fluzone) 10/21/2022,08/02/2020,01/05/2018 TD, Preservative Free 04/03/2021 TDAP (age 11 and older)(Adacel) 01/09/2011 01/09/2021 documented as of this encounter [...] encounter Miscellaneous Notes * Telephone Encounter - Estrella Castorena RN - 04/20/2024 1:59 PM EDT There are no openings in office today. Patient reviewed with Dr. Draper. Per Dr. Draper patient needs to be seen in the ER for urgent work up/cultures. Patient called and made aware to go to the ER. She will be going over as soon as possible. States it may be closer to 4 until she gets there. Advised that she get there as soon as she can. * Telephone Encounter - Li Gurrola RN - 04/20/2024 1:38 PM EDT Message to Dr. Galeano * Telephone Encounter - Shelly Petersen RN - 04/20/2024 1:22 PM EDT T/C from pt reporting chills, temp of 101 (pt states ranges from 99-102). Pt reports nausea and some throwing up, pain in tailbone, tightness on the left side. Urge to urinate all the time but not urinating as frequently as normal. Pt had surgery Thursday04/15/24. Laparoscopic bilateral fallopian tube removal and left side oophorectomy and left ovarian cyst removal. documented in this encounter Plan of Treatment Upcoming Encounters Date Type Department Care Team (Late st Contact Info) Description 05/02/2024 11:45 AM EDT Office Visit Gynecology/Obstetrics [facility] [address] [place] [address] Toy Murray MD [address] [place] [address] 09/21/2024 3:40 PM EDT Office Visit Dermatology [facility] [address] [place] [address] Jacob Schwarz PA-C [address] [place] [address] Scheduled Procedures Name Priority Associated Diagnoses Date/Ti [...] filedocumented as of this encounter Care Teams Laborer Filter Plant Relationship Specialty Start Date End Date March, Fermin Ryder MD [address] [place] [address] PCP - General Family Medicine 10/09/23 documented as of this encounter
--- OUTSIDE RECORDS SUMMARY | 2024-04-23 17:04 | External Medical Summary | Summary of Care ---
Author Name Unknown Organization [facility] Address [address] [place] [address] Phone [phone] Care Team Providers Care Risk Control Representative Name Role Phone Fermin Ontiveros MD Primary Care Provider [phone] Reason for Visit * Reason Comments Diabetes Follow-Up Dosage Adjustment Via Phone (anticoag Cl inic) Encounter Details Date Type Department Care Team ([facility] st Contact Info) Description 04/21/2024 10:00 AM EDT Telemedicine Endocrinology, [place] [address] [place], [place] [phone] [place], Pharmacist Endocrinology [address] [place], [place] [phone] Morbid obesity due to excess calories (HCC)* Allergies Active Allergy Reactions Criticality Noted Date Comments Metformin 07/31/2021 Gi upset diarrhea Naltrexone 04/12/2019 Nausea documented as of this encounter (statuses as of 04/21/2024) Medications Medication Sig Dispensed Refills Start Date End Date Status Ventolin HFA 108 (90 Base) MCG/ACT Inhalation Aerosol SolutionIndications :SOB (shortness of breath),Acute URI,Wheezing Inhale by mouth [...] Active rOPINIRole HCl 0.25 MG Oral Tablet (Requip)Indications :Restless legs syndrome TAKE 1 TABLET BY MOUTH AT BEDTIME 90 Tablet 10/09/2023 Active Famotidine 20 MG Oral Tablet (Pepcid) Take 1 Tablet by mouth at bedtime. 90 Tablet 2 10/28/2023 Active Varenicline Tartrate 1 MG Oral TabletIndications:T obacco use Take 1 Tablet by mouth in the morning and 1 Tablet before bedtime. 56 Tablet 1 12/29/2023 Active Triamcinolone Acetonide 0.1 % External Cream (Aristocort)Indicat ions:Urticaria Apply topically to affected area 2 times a day. 80 g 1 12/29/2023 Active oxyCODONE-Acetamino phen 5-325 MG Oral Tablet (Percocet) Take 1 Tablet by mouth every 4 hours as needed for Pain, Breakthrough. 28 Tablet 01/08/2024 Active Vitamin D (Ergocalciferol) 1.25 MG (34087 UT) Oral Capsule (Drisdol) Take 1 Capsule by mouth once a week. 8 Capsule 01/26/2024 Active Vilazodone HCl 20 MG Oral Tablet (Viibryd) Take 1 Tablet by mouth in the morning. 30 Tablet 1 01/27/2024 Active Omeprazole 40 MG Oral Capsule Delayed Release (PriLOSEC)Indicatio ns:Gastroesophageal reflux disease with esophagitis, unspecified whether hemorrhage Take 1 Capsule by mouth in the morning. 90 Capsule 1 01/28/2024 Active Fluticasone Propionate 50 MCG/ACT Nasal Suspension (Flonase)Indication s:Allergic rhinitis due to pollen, unspecified seasonality Administer 2 Sprays into each nostril in the morning. 48 g 1 01/28/2024 Active Minocycline HCl 100 MG Oral CapsuleIndications: Hidradenitis Take 1 Capsule by mouth in the morning. 90 Capsule 1 2024 Active Chlorhexidine Gluconate 2 % External Liquid (Scrub-Stat) Apply to affected area and wash off 3 times weekly to prevent outbreaks 118 mL 1 2024 Active Magnesium Citrate Oral Solution Take 296 ml solution 5 PM the night before surgery 296 mL 03/21/2024 Active oxyCODONE-Acetamino phen 5-325 MG Oral Tablet (Percocet) Take 1 Tablet by mouth every 4 hours as needed for Severe Pain 24 Tablet 03/21/2024 Active Ondansetron 4 MG Oral Tablet Disintegrating (Zofran)Indications :Nausea Place 1 Tablet on tongue and dissolve every 8 hours as needed for Vomiting. 20 Tablet 1 04/15/2024 Active Ibuprofen 600 MG Oral Tablet (Motrin) take 1 tablet (600 mg )orally every 6 hours 30 Tablet 04/15/2024 Active Ondansetron 8 MG Oral Tablet Disintegrating (Zofran) take 1 tablet (8 mg )orally every 8 hours for 3 days 21 Tablet 04/15/2024 Active oxyCODONE-Acetamino phen 5-325 MG Oral Tablet (Percocet) take 1 [...] Wegovy 2.4 MG/0.75ML Subcutaneous Solution Auto-injector (Semaglutide-Weight Management)Indicati ons:Morbid obesity due to excess calories (HCC) Inject 2.4 mg under the skin once a week. 3 mL 04/21/2024 Active Wegovy 2.4 MG/0.75ML Subcutaneous Solution Auto-injector (Semaglutide-Weight Management)Indicati ons:Morbid obesity due to excess calories (HCC) INJECT 2.4 MG (1 PEN) UNDER THE SKIN ONCE A WEEK. 9 mL 02/16/2024 Discontinue d(Refill) documented as of this encounter (statuses as [...] 03/10/2017 10/08/2020 Overview: Seen on CT at [facility]: 3 cm water attenuation, likely cyst Will [...] PPD 01/27/2022 Pneumococcal Conjugate Vacci ne, 20-valent ([id number]) 07/29/2022 Pneumococcal Polysaccharide PPV23 (Pneumovax) 01/09/2011 Seasonal [...] on file documented as of this encounter Progress Notes * Catherine Whalen, [facility] - 04/21/2024 11:32 AM EDT GLP-1 Medication Therapy Status Check After connecting to the patient via telephone, the patient was identified by name and date of . Patient was then informed that this was a telephone call only visit. The patient agreed to participate Visit Disposition: Status check Duration: 5 minutes Name: Neto Acuna Diagnosis: Obesity Current GLP1 therapy: Wegovy 2.4mg weekly OBJECTIVE Estimated body mass index is 48.2 kg/m as calculated from the following: Height as of 03/21/24: 1.727 m (5' 8"). Weight as of 03/21/24: 143.8 kg (317 lb). BP Readings from Last 3 Encounters: 03/21/24 128/80 12/22/23 124/70 10/27/23 124/74 Hemoglobin AIC Results: Lab Results Component Value Date/Time HEMOGLOBIN A1C - [facility] 5.7 (H) 02/16/2023 11:34 AM HEMOGLOBIN A1C - [facility] 5.9 (H) 07/29/2022 01:09 PM HEMOGLOBIN A1C - [facility] 5.1 07/31/2021 12:48 PM HEMOGLOBIN A1C - [facility] 5.4 02/16/2019 09:26 AM HEMOGLOBIN A1C - [facility] 5.3 06/24/2017 09:25 AM No results found for: "MICROALBUMIN" MEDICATION USE ASSESSMENT Patient is adherent to current prescribed dose of GLP1 therapy? Yes, patient taking as prescribed Allergic / Local Reactions Reported: No Side Effects Reported: No side effects, tolerating well PLAN The patient was educated on when to contact provider with change of symptoms or tolerability to medication. Continue medication as prescribed. Aware she is in need of a follow up office visit. She will call/MyChart for one. Catherine Whalen [facility] Clinical Pharmacist Medication Therapy Disease Management 04/21/2024,11:32 AM documented in this encounter Plan of Treatment Upcoming Encounters Date Type Department Care Team ([facility] st Contact Info) Description 05/02/2024 11:45 AM EDT Office [facility] [place] [address] Toy Murray MD [address] [place] [address] 09/21/2024 3:40 PM EDT Office Visit Dermatology [facility] [address] [place] [phone] Jacob Schwarz PA-C [address] [place] [phone] Scheduled Procedures Name Priority Associated Diagnoses Date/Ti [...] Not on filedocumented as of this encounter Visit Diagnoses Diagnosis Morbid obesity due to excess calories (HCC)- Primary documented in this encounter Care Teams Risk Control Representative Relationship Specialty Start Date End Date March, Fermin Ryder MD [address] [place] [address] PCP - General Family Medicine 10/09/23 documented as of this encounter
--- NOTE | 2024-04-23 21:53 | Progress Note ---
Date of Service April 23, 2024 Assessment & Plan (1) Cellulitis, wound, post-operative: Plan Pt doing well Afebrile Wound packing removed, irrigated with saline and repacked with gauze Continue antibx tx. Admission and Anticipated Discharge Date Admission Date: April 22, 2024 Results & Data Vital Signs (Past 12 Hours) Vital Signs Temp Pulse Resp BP Pulse Ox O2 Del Method 04/23/24 19:57 36.3 C L 75 17 138/77 97 Room Air 04/23/24 15:37 36.5 C 71 18 117/79 97 Room Air
[2024-04-23] MEDS: FLUCONAZOLE 50 MG TAB PO ONE (22:28)
[2024-04-24] MEDS: ONDANSETRON INJ 2 MG/ML 2 ML VIAL IV PRN (03:06)
[2024-04-24 06:48] LABS: Basophils # (auto) 0.03 K/uL (0.00-0.20); Basophils % (auto) 0.2 %; Eosinophils # (auto) 0.18 K/uL (0.00-0.50); Eosinophils % (auto) 1.5 %; Hematocrit (blood only) 37.4 % (37.0-47.0); Hemoglobin 12.3 g/dl (12.0-16.0); Immature Granulocytes # (auto) 0.07 K/uL (0.01-0.20); Immature Granulocytes % (auto) 0.6 %; Lymphocytes # (auto) 0.99 K/uL (1.20-3.40); Lymphocytes % (auto) 8.2 %; Mean Corpuscular Hemoglobin 30.4 pg (25.0-34.0); Mean Corpuscular Hgb Conc 32.9 g/dL (32.0-36.0); Mean Corpuscular Volume 92.6 fL (80.0-100.0); Mean Platelet Volume 9.4 fL (9.4-12.4); Monocytes # (auto) 0.71 K/uL (0.11-0.59); Monocytes % (auto) 5.9 %; Neutrophils # (auto) 10.03 K/uL (1.40-6.50); Neutrophils % (auto) 83.6 %; Platelet Count 390 K/uL (130-400); RDW Coefficient of Variation 13.9 % (11.5-14.5); RDW Standard Deviation 47.2 fL (36.4-46.3); Red Blood Count 4.04 M/uL (4.20-5.40); White Blood Count 12.01 K/ul (4.8-10.8)
[2024-04-24 08:00] LABS: Albumin Globulin Ratio 0.9 (0.9-2); BUN Creatinine Ratio 18.1 (10-20); Bilirubin,Total 0.6 mg/dl (0.2-1.0); Calcium 9.2 mg/dl (8.6-10.3); Creatinine Clr Calc Pharmacy 145.6 ml/min; Est GFR (African American) 116.4 ml/min; Est GFR (Non-African American) 100.4 ml/min; Globulin 3.4 gm/dl (2.5-4.0); Potassium 3.5 mmol/L (3.5-5.1); Total Protein 6.4 gm/dl (6.0-8.3)
--- NOTE | 2024-04-24 10:38 | Progress Note ---
Date of Service April 24, 2024 Assessment & Plan (1) Cellulitis, wound, post-operative: Plan Post op cellulitis/ wound abscess Pt doing well Afebrile WBC improving Wound packing removed, debrided and repacked with gauze x2 wound care consult in AM Admission and Anticipated Discharge Date Admission Date: April 22, 2024 Results & Data Vital Signs (Past 12 Hours) Vital Signs Temp Pulse Resp BP Pulse Ox O2 Del Method 04/24/24 07:42 36.9 C 78 16 136/81 97 Room Air
[2024-04-24] MEDS: DOCUSATE SODIUM 100 MG CAP PO SCH (10:54)
[2024-04-24] MEDS: OPTIRAY 320 125ml IV ONE (11:33)
--- NOTE | 2024-04-24 11:59 | CT Scan Report ---
CT abd pelvis IV con only CLINICAL HISTORY: repeat scan for abscess following surgery I D TECHNIQUE: Helical axial images of the abdomen and pelvis were obtained and displayed. Automated dose lowering techniques and/or adjustment according to patient size were utilized for this exam. This e xam was performed with intravenous contrast. CT DOSE: 1732.54 mGy.cm COMPARISON: Comparison is made to CT abdomen pelvis 04/20/2024 FINDINGS: Lower chest: Cardiomegaly is partially visualized. Liver: Unremarkable. No focal lesions are seen. Gallbladder and biliary tree: No calcified gallstones. Normal caliber wall. No intra- or extrahepatic biliary ductal dilation. Pancreas: Unremarkable, no focal lesions. Spleen: Splenule is incidentally noted. Adrenals: Unremarkable. Kidneys and ureters: Unremarkable. Bladder: Limited evaluation due to underdistention. Reproductive organs: Unremarkable. Bowel: Unremarkable. Lymph nodes Retroperitoneal: Unremarkable. Pelvic: Left subcentimeter inguinal nodes are seen. Mesenteric: Unremarkable. Peritoneum: Normal. Vessels: Unremarkable. Abdominal wall: Left abdominal wall subcutaneous emphysema is seen. No well-defined fluid collection is seen. No invasion of the peritoneal cavity is noted. Bones: Minimal degenerative changes are seen. IMPRESSION: Subcutaneous edema remains in the left lower quadrant abdominal wall with associated fat stranding bu t no well-defined fluid collection. Findings may be postsurgical or related to gas-forming infection, however no drainable abscess is seen. ACT 112: Negative or not required by law. Electronically signed by: Ayaan Jalloh M.D. 04/24/2024 11:57 AM
[2024-04-24] MEDS: COUGH DROP (SUGAR FREE) LOZ 24 LOZ/1 BOX BUCCAL ONE (15:25)
[2024-04-24] MEDS: diphenhydrAMINE Capsule 25 MG CAP PO PRN (16:05)
[2024-04-24] MEDS: diphenhydrAMINE 2%/ZINC 0.1% CREAM 28.4GM TUBE EXT SCH (16:43)
[2024-04-24] MEDS: PANTOprazole 40 MG TAB PO SCH (19:54)
--- NOTE | 2024-04-24 21:55 | Progress Note ---
Date of Service April 24, 2024 Assessment & Plan (1) Cellulitis, wound, post-operative: Plan Pt doing well stable vitals Ct scan reviewed; no fluid collection or abscess to be drained Wound packing removed, irrigated and repacked Wound care consult placed for AM Anticipate disch after wound care consult Admission and Anticipated Discharge Date Admission Date: April 22, 2024 Results & Data Vital Signs (Past 12 Hours) Vital Signs Temp Pulse Resp BP Pulse Ox O2 Del Method 04/24/24 19:50 36.8 C 91 H 18 131/84 96 Room Air 04/24/24 15:21 36.6 C 90 16 145/79 H 94 Room Air
[2024-04-25 07:05] LABS: Basophils # (auto) 0.05 K/uL (0.00-0.20); Basophils % (auto) 0.5 %; Eosinophils # (auto) 0.19 K/uL (0.00-0.50); Eosinophils % (auto) 1.7 %; Hematocrit (blood only) 34.9 % (37.0-47.0); Hemoglobin 11.4 g/dl (12.0-16.0); Immature Granulocytes # (auto) 0.07 K/uL (0.01-0.20); Immature Granulocytes % (auto) 0.6 %; Lymphocytes % (auto) 9.2 %; Mean Corpuscular Hemoglobin 30.2 pg (25.0-34.0); Mean Corpuscular Hgb Conc 32.7 g/dL (32.0-36.0); Mean Corpuscular Volume 92.3 fL (80.0-100.0); Mean Platelet Volume 9.5 fL (9.4-12.4); Monocytes # (auto) 0.76 K/uL (0.11-0.59); Neutrophils # (auto) 8.81 K/uL (1.40-6.50); Platelet Count 428 K/uL (130-400); RDW Coefficient of Variation 13.2 % (11.5-14.5); RDW Standard Deviation 45.1 fL (36.4-46.3); Red Blood Count 3.78 M/uL (4.20-5.40); White Blood Count 10.88 K/ul (4.8-10.8)
[2024-04-25 07:36] LABS: Albumin Globulin Ratio 0.9 (0.9-2); BUN Creatinine Ratio 14.3 (10-20); Bilirubin,Total 0.5 mg/dl (0.2-1.0); Calcium 8.7 mg/dl (8.6-10.3); Creatinine Clr Calc Pharmacy 149.7 ml/min; Est GFR (African American) 120.4 ml/min; Est GFR (Non-African American) 103.9 ml/min; Globulin 3.5 gm/dl (2.5-4.0); Potassium 3.7 mmol/L (3.5-5.1); Total Protein 6.5 gm/dl (6.0-8.3)
--- NOTE | 2024-04-25 09:36 | Progress Note ---
Date of Service April 25, 2024 Assessment & Plan Admission and Anticipated Discharge Date Admission Date: April 22, 2024 Subjective Pt doing well Wound packing removed and new packing in place afebrile. Improved WMC On antibx x 24hrs waiting for wound consult and disch Results & Data Vital Signs (Past 12 Hours) Vital Signs Temp Pulse Pulse Resp BP Pulse Ox O2 Del Method 04/25/24 07:44 36.5 C 101 H 17 140/84 95 Room Air 04/25/24 07:14 36.6 C 88 17 113/73 95 Room Air
--- NOTE | 2024-04-25 13:49 | Progress Note ---
Date of Service April 25, 2024 Assessment & Plan (1) Cellulitis, wound, post-operative: Plan Pt doing well wound care nurse exam and tx done pt declined wound vac and want to be seen at wound clinic' wound cleaned and tx by nurse Pt is disch. home with instructions Admission and Anticipated Discharge Date Admission Date: April 22, 2024 Results & Data Vital Signs (Past 12 Hours) Vital Signs Temp Pulse Pulse Resp BP Pulse Ox O2 Del Method 04/25/24 07:44 36.5 C 101 H 17 140/84 95 Room Air 04/25/24 07:14 36.6 C 88 17 113/73 95 Room Air
--- NOTE | 2024-05-03 18:11 | Discharge Summary ---
Date of Service May 03, 2024 Admission HPI Per Admitting Provider 44 F s/p laparoscopic left BSO on 04/15/24 admitted for worsening wound infection post op. Patient was seen 2 days again the ER at [facility] and was recommended to stay for IV antibiotics and patient refused treatment as inpatient at that time. She was given PO antibiotics and was seen today in the office by Dr. Murray who examined her and opened wound and packed it. Discharge Data Consultations 04/24/24 17:45 Burn CD for patient Routine Procedures Performed Daily wound irrigation and packing Hospital Course (1) Surgical wound, non healing: d/c home f/u with wound careclinic
--- NOTE | 2024-05-11 06:18 | Coding Query ---
DEBRIDEMENT DOCUMENTATION To promote full compliance with coding requirements relating to patient care, physician participation is requested in all cases of coordinator of placement uncertainty. Please assist us with the question(s) below: Please place an X in the parenthesis (x). If other, please document the finding: Type of Debridement done on 04/23/24: ( x) Excisional Debridement- Cutting away necrotic, devitalized tissue or slough to the level of viable tissue using a sharp instrument (i.e. scalpel, scissors, etc.) ( ) Non Excisional Debridement- The removal of necrotic, devitalized tissue or slough by means of scraping, mechanical brushing, flushing, or washing (i.e. irrigation,whirlpool);minor removal of loose fragments. ( ) Other (please specify): Instrument Used: (x ) Scissors ( ) Scalpel ( ) Curette ( ) Other (please specify): Depth of Debridement: ( ) Skin ( x) Skin and Subcutaneous Tissue ( ) Skin, Subcutaneous Tissue and Muscle ( ) Skin, Subcutaneous Tissue, Muscle and Bone ( ) Other (please specify): Please Specify the Size of Debridement in cm2: [id number] Thank you Susy ROSARIO
--- NOTE | 2024-05-11 06:18 | Coding Query ---
DEBRIDEMENT DOCUMENTATION To promote full compliance with coding requirements relating to patient care, physician participation is requested in all cases of hoe runner uncertainty. Please assist us with the question(s) below: Please place an X in the parenthesis (x). If other, please document the finding: Type of Debridement done on 04/24/24: ( x Excisional Debridement- Cutting away necrotic, devitalized tissue or slough to the level of viable tissue using a sharp instrument (i.e. scalpel, scissors, etc.) ( ) Non Excisional Debridement- The removal of necrotic, devitalized tissue or slough by means of scraping, mechanical brushing, flushing, or washing (i.e. irrigation,whirlpool);minor removal of loose fragments. ( ) Other (please specify): Instrument Used: (x ) Scissors ( ) Scalpel ( ) Curette ( ) Other (please specify): Depth of Debridement: ( ) Skin (x ) Skin and Subcutaneous Tissue ( ) Skin, Subcutaneous Tissue and Muscle ( ) Skin, Subcutaneous Tissue, Muscle and Bone ( ) Other (please specify): Please Specify the Size of Debridement in cm2: [id number] Thank you Susy ROSARIO
== END 2024-04-25 15:07 | disposition home or self-care (01) | DRG 857 ==
LOC: 3E 13:45